=== PATIENT | male | born 1935 | race American Indian/Alaskan Native ===

== ENCOUNTER 2017-02-13 13:56 | Inpatient (IN) | payer MEDICARE, OTHER ==
[2017-02-13 13:56] VITALS: BMI 22.6
[2017-02-13] MEDS ORDERED: Sodium Chloride 0.9% 500 ML IV ONE ×2 (14:36→15:42)
[2017-02-13 15:17] LABS: BASO # 0.1 K/uL (0.0-0.2); BASO % 0.6 % (0.0-2.0); EOS # 0.6 K/uL (0.0-0.7); EOS % 7.5 % (0.0-4.0); HEMATOCRIT 27.8 % (35.0-51.0); LYMPH # 3.6 K/uL (1.0-4.3); LYMPH % 42.6 % (20.0-40.0); MEAN CORPUSCULAR HEMOGLOBIN 30.2 pg (27.0-31.0); MEAN CORPUSCULAR HGB CONC 32.9 g/dL (33.0-37.0); MEAN PLATELET VOLUME 8.4 fL (7.2-11.7); MONO # 1.4 K/uL (0.0-0.8); MONO % 16.3 % (0.0-10.0); RED CELL DISTRIBUTION WIDTH 15.5 % (11.5-14.5); WHITE BLOOD COUNT 8.4 K/uL (4.8-10.8)
[2017-02-13 15:18] LABS: MEAN CELL VOLUME 91.7 fL (80.0-94.0)
[2017-02-13 15:28] LABS: POTASSIUM 5.2 mmol/L (3.6-5.2)
[2017-02-13 15:30] LABS: BILIRUBIN,TOTAL 0.5 mg/dL (0.2-1.3)
[2017-02-13 15:31] LABS: ALB/GLOB RATIO 0.8 (1.0-2.1); TOTAL PROTEIN 8.9 g/dL (6.3-8.3)
[2017-02-13 15:32] LABS: CALCIUM 8.9 mg/dl (8.6-10.4)
--- NOTE | 2017-02-13 16:19 | C.PDOC ---
History Of Present Illness Pt was sent in by PMD Domenic Tatum for renal failure found on labs from yesterday. Pt has been feeling generalized weakness. Time Seen by Provider: 02/13/17 14:27 Chief Complaint (Nursing): Abnormal Labs History Per: Patient Onset/Duration Of Symptoms: Days (1) Current Symptoms Are (Timing): Still Present Severity: Moderate Reports Recently: Treated By A Physician Additional History Per: Prior Records Past Medical History Reviewed: Historical Data, Nursing Documentation, Vital Signs Vital Signs: Last Vital Signs Temp 98 F 02/13/17 14:04 Pulse 98 H 02/13/17 14:04 Resp 20 02/13/17 14:04 BP 146/88 02/13/17 14:04 Pulse Ox 100 02/13/17 14:04 - Medical History PMH: Arthritis (b/l tkr), HTN, Hypercholesterolemia, Peripheral Edema (no longer ), Pneumonia (mar 2016), Chronic Kidney Disease (renal insufficiency), Rheumatoid Arthritis - [facility] Procedures COLONOSCOPY (04/15/14) DRAINAGE OF LEFT KNEE JOINT, PERC ENDO APPROACH (03/05/15) EXCISION OF LEFT KNEE JOINT, PERC ENDO APPROACH, DIAGN (03/05/15) EXTRACTION OF L LOW LEG SUBCU/FASCIA, PERC APPROACH (03/05/15) INSERTION OF ENDOTRACHEAL AIRWAY INTO TRACHEA, VIA OPENING (03/05/15) INSERTION OF INFUSION DEV INTO SUP VENA CAVA, PERC APPROACH (03/05/15) INSPECTION OF LEFT KNEE JOINT, PERC ENDO APPROACH (03/05/15) RESPIRATORY VENTILATION, GREATER THAN 96 CONSECUTIVE HOURS (03/05/15) TRANSFUSE NONAUT RED BLOOD CELLS IN PERIPH VEIN, PERC (03/05/15) ULTRASONOGRAPHY OF SUPERIOR VENA CAVA, GUIDANCE (03/05/15) Family History: States: Unknown Family Hx - Social History Hx Tobacco Use: No Hx Alcohol Use: No Hx Substance Use: No - Immunization History Hx Tetanus Toxoid Vaccination: No Hx Influenza Vaccination: Yes (02/12/2017) Hx Pneumococcal Vaccination: (2013) Review Of Systems Except As Marked, All Systems Reviewed And Found Negative. Constitutional: Positive for: Weakness, Malaise. Negative for: Fever Cardiovascular: Negative for: Chest Pain Respiratory: Positive for: Shortness of Breath (on/off) Gastrointestinal: Negative for: Vomiting, Abdominal Pain, Diarrhea Genitourinary: Positive for: Dysuria, Frequency Musculoskeletal: Negative for: Neck Pain, Back Pain Skin: Negative for: Rash Neurological: Negative for: Weakness, Numbness Physical Exam - Physical Exam Appears: No Acute Distress, Chronically Ill Skin: Normal Color, Warm, Dry, No Rash Head: Atraumatic, Normacephalic Eye(s): bilateral: Normal Inspection, PERRL, EOMI Neck: Normal ROM, Supple Cardiovascular: Rhythm Regular Respiratory: Normal Breath Sounds, No Accessory Muscle Use Gastrointestinal/Abdominal: Soft, No Tenderness Back: No CVA Tenderness Extremity: Normal ROM Neurological/Psych: Oriented x3, Normal Motor, Normal Sensation ED Course And Treatment - Laboratory Results Result Diagrams: 02/13/17 15:11 02/13/17 15:11 Lab Interpretation: Abnormal Interpretation Of Abnormal: Renal failure ECG: Interpreted By Me, Viewed By Me ECG Rhythm: Sinus Rhythm, Nonspecific Changes Rate From EC O2 Sat by Pulse Oximetry: 100 Pulse Ox Interpretation: Normal - Radiology CXR: Interpreted by Me, Viewed By Me CXR Interpretation: Yes: Other (Mild congestive changes) Progress Note: I spoke to Dr. Fischer (covering Dr. Moreno), she wants pt to be admitted on hospitalist service and they with provide renal consult. Disposition Discussed With : Yobani العلي Comment: She accepted pt on hospitalist service. Doctor Will See Patient In The: Hospital Counseled Patient/Family Regarding: Studies Performed, Diagnosis - Disposition Disposition: HOSPITALIZED Disposition Time: 16:22 Condition: GUARDED - Clinical Impression Clinical Impression: Acute on chronic renal failure
--- NOTE | 2017-02-13 16:33 | RAD ---
PROCEDURE: CHEST RADIOGRAPH, 1 VIEW HISTORY: SOB COMPARISON: 03/21/2015 FINDINGS: LUNGS: The prior pulmonary venous congestion although still present appears slightly less Oval consolidation appreciated PLEURA: No pneumothorax seen. Small left pleural effusion possible CARDIOVASCULAR: Cardiomegaly as before OSSEOUS STRUCTURES: Thoracic spondylosis. Bilateral shoulder arthrosis. Deformity -proximal left humerus consistent with old fracture resultant deformity. VISUALIZED UPPER ABDOMEN: Normal. OTHER FINDINGS: None. IMPRESSION: Persistent is slightly less pronounced central pulmonary venous congestion. Cardiomegaly as before Arthrosis of both shoulders and similar old healed fracture deformity left proximal humerus
[2017-02-13 16:47] LABS: RBC URINE 53 /hpf (0-3); URINE BACTERIA RARE (<OCC); URINE BILIRUBIN NEGATIVE (NEGATIVE); URINE BLOOD 2+ (NEGATIVE); URINE COLOR Yellow (YELLOW); URINE GLUCOSE (UA) NORMAL (Normal); URINE KETONE NEGATIVE (NEGATIVE); URINE LEUKOCYTE ESTERASE 3+ Leu/uL (Negative); URINE PROTEIN 1+ mg/dL (NEGATIVE); URINE UROBILINOGEN NORMAL mg/dL (0.2-1.0); WBC URINE 950 /hpf (0-5)
--- NOTE | 2017-02-13 16:52 | CP.PCM.HP ---
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 Dr. Hinojosa (on consult) for TRACI on CKD. He has no acute complaints today other than it has been difficult to urinate for quite some time now, feel the urge to go, and very little comes out. He states he feels like he always has to go to the bathroom. He denies fevers/chills, MEDEIROS, CP, SOB, abdominal pain, N/V/D, dysuraia/ freq/urg, or lower extremity pain/swelling. Upon further questioning patient states that he has been losing weight unintentionally the last few months, has increased joint and "bone" pain, and that he has a much decreased appetite when compared to normal. Denies night sweats. PMhx: [place], HLD, OA, CKD stage 2, previous "stomach cancer Surgeries: B/l knee replacement Allergies: Seafood (shellfish), no medicatoins Meds: Aspirin 325, Finasteride, Crestor, Carvedilol Social: , independent ADL however memory is "starting to go" according to , walks without cane 4-5 blocks before getting short of breath, sleeps flat Present on Admission - Present on Admission Any Indicators Present on Admission: No History of DVT/PE: No History of Uncontrolled Diabetes: No Urinary Catheter: No Decubitus Ulcer Present: No Past Patient History - Past Medical History & Family History Past Medical History?: Yes - Past Social History Smoking Status: Former Smoker - CARDIAC Hx Hypercholesterolemia: Yes Hx Hypertension: Yes Hx Peripheral Edema: Yes (no longer) - PULMONARY Hx Pneumonia: Yes (mar 2016) - NEUROLOGICAL Hx Neurological Disorder: No - HEENT Hx HEENT Problems: No - RENAL Hx Chronic Kidney Disease: Yes (renal insufficiency) - HEMATOLOGICAL/ONCOLOGICAL Hx Blood Disorders: Yes (hx septic shock may 2015) Hx Blood Transfusions: Yes Hx Blood Transfusion Reaction: No Hx Hepatitis B: Yes (40 yrs ago) - MUSCULOSKELETAL/RHEUMATOLOGICAL Hx Arthritis: Yes (b/l tkr) Hx Rheumatoid Arthritis: Yes - GASTROINTESTINAL Hx Gastrointestinal Disorders: Yes Hx Gastroesophageal Reflux: Yes - GENITOURINARY/GYNECOLOGICAL Hx Genitourinary Disorders: Yes Hx Prostate Problems: Yes (BPH) - PSYCHIATRIC Hx Substance Use: No - SURGICAL HISTORY Hx Surgeries: Yes Hx Herniorrhaphy: Yes (ARSEN INGUINAL ) Hx Joint Replacement: Yes Hx Musculoskeletal Surgery: Yes (ARSEN ARTHROSCOPY BOTH KNEES) Other/Comment: liver bx - ANESTHESIA Hx Anesthesia: Yes Hx Anesthesia Reactions: No Hx Malignant Hyperthermia: No Meds Allergies/Adverse Reactions: Allergies Allergy/AdvReac Type Severity Reaction Status Date / Time FISH Allergy ITCHING Verified 02/13/17 14:08 seafoods Allergy ITCHING Uncoded 02/13/17 14:08 Physical Exam - Constitutional Appears: Non-toxic - Head Exam Head Exam: ATRAUMATIC - Eye Exam Eye Exam: EOMI Pupil Exam: PERRL Additional comments: cataracts present - ENT Exam ENT Exam: Mucous Membranes Moist - Respiratory Exam Respiratory Exam: Clear to Auscultation Bilateral, NORMAL BREATHING PATTERN. absent: Rales, Rhonchi, Wheezes - Cardiovascular Exam Cardiovascular Exam: REGULAR RHYTHM, +S1, +S2 - GI/Abdominal Exam GI & Abdominal Exam: Normal Bowel Sounds, Soft. absent: Tenderness - Rectal Exam Rectal Exam: Deferred - Extremities Exam Extremities exam: Positive for: full ROM, normal capillary refill, normal inspection, pedal pulses present. Negative for: calf tenderness, joint swelling , pedal edema, tenderness - Back Exam Back exam: absent: CVA tenderness (L), CVA tenderness (R) - Neurological Exam Neurological exam: Alert, CN II-XII Intact, Oriented x3 - Psychiatric Exam Psychiatric exam: Normal Affect - Skin Skin Exam: Warm Results - Vital Signs Recent Vital Signs: Last Vital Signs Temp 98 F 02/13/17 14:04 Pulse 98 H 02/13/17 14:04 Resp 20 02/13/17 14:04 BP 146/88 02/13/17 14:04 Pulse Ox 100 02/13/17 16:22 - Labs Result Diagrams: 02/13/17 15:11 02/13/17 15:11 Labs: Laboratory Results - last 24 hr 02/13/17 02/13/17 02/13/17 15:05 15:11 15:11 WBC 8.4 RBC 3.04 L Hgb 9.2 L Hct 27.8 L MCV 91.7 D MCH 30.2 MCHC 32.9 L RDW 15.5 H Plt Count 274 MPV 8.4 Neut % (Auto) 33.0 L Lymph % (Auto) 42.6 H [place] % (Auto) 16.3 H Eos % (Auto) 7.5 H Baso % (Auto) 0.6 Neut # 2.8 Lymph # 3.6 [place] # 1.4 H Eos # 0.6 Baso # 0.1 Sodium 139 Potassium 5.2 Chloride 107 Carbon Dioxide 16 L Anion Gap 21 H BUN 74 H Creatinine 5.7 H Est GFR ( Amer) 12 Est GFR (Non-Af Amer) 10 POC Glucose (mg/dL) 111 H Random Glucose 101 Calcium 8.9 Total Bilirubin 0.5 AST 26 ALT 16 L D Alkaline Phosphatase 116 Total Protein 8.9 H Albumin 3.9 Globulin 5.0 H Albumin/Globulin Ratio 0.8 L Urine Color Urine Clarity Urine pH Ur Specific [place] Urine Protein Urine Glucose (UA) Urine Ketones Urine Blood Urine Nitrate Urine Bilirubin Urine Urobilinogen Ur Leukocyte Esterase Urine WBC (Auto) Urine RBC (Auto) Urine Bacteria 02/13/17 16:37 WBC RBC Hgb Hct MCV MCH MCHC RDW Plt Count MPV Neut % (Auto) Lymph % (Auto) [place] % (Auto) Eos % (Auto) Baso % (Auto) Neut # Lymph # [place] # Eos # Baso # Sodium Potassium Chloride Carbon Dioxide Anion Gap BUN Creatinine Est GFR ( Amer) Est GFR (Non-Af Amer) POC Glucose (mg/dL) Random Glucose Calcium Total Bilirubin AST ALT Alkaline Phosphatase Total Protein Albumin Globulin Albumin/Globulin Ratio Urine Color Yellow Urine Clarity Hazy Urine pH 5.0 Ur Specific [place] 1.011 Urine Protein 1+ H Urine Glucose (UA) Normal Urine Ketones Negative Urine Blood 2+ H Urine Nitrate Negative Urine Bilirubin Negative Urine Urobilinogen Normal Ur Leukocyte Esterase 3+ H Urine WBC (Auto) 950 H Urine RBC (Auto) 53 H Urine Bacteria Rare Assessment & Plan - Assessment and Plan (Free Text) Assessment: 81yo AA M admitted for TRACI on CKD TRACI on CKD; 5.7 from 1.7 on record -Dr. Hinojosa; Nephrology; please appreciate recs -Dr. Forman; Urology; please appreciate recs -patient has history of BPH with slightly decreased GFR; patient states he has been having more trouble going to the bathroom recently -f/u urine lytes; ordered stat in ER for FeNa -100ml/hr NS until tomorrow for fluid hydration -f/u renal ultrasound for hydronephrosis -bladder scans; if patient is retaining will need to put in catheter w/ cudet as per urology HTN -c/w carvedilol -hold Lisinopril in TRACI -echo done 05/21 with MUGA; both normal w/ EF 65% with no wall motion abnormalities Anemia;Chronic -currently 9.2 -no signs of bleeding; appears to be around baseline -f/u anemia workup; iron/tibc/folate/b12/retic -consult Dr. Epps; appreciate recs Elevated Serum Protein -Pep and Immunofixation ordered; f/u results -patient does report bone pain/unintentional weight loss/decreased appetite the last few months Previous Liver Lesion of unknown etiology -CT abd/pelvis ordered for AM; previous CT recommended liver scans -liver enzymes WNL; alpha feta protein ordered for AM Proph -Pepcid PO -Lovenox 30 -Renal Heart Healthy Diet -Tylenol, Zofran, Hydralazine for HTN -full code Case discussed and seen with Dr. Greene Decision To Admit - Pt Status Changed To: Hospital Disposition Of: Inpatient - Admit Certification Admit to Inpatient:: After my assessment, the patient will require hospitalization for at least two midnights. This is because of the severity of symptoms shown, intensity of services needed, and/or the medical risk in this patient being treated as an outpatient. - InPatient: Physician Admission Certification:: this patient will need more than 2 midnights - . Bed Request Type: Regular Admitting Physician: Luz Maria Greene <Luz Maria Greene V - Last Filed: 02/15/17 10:46> Results - Vital Signs Recent Vital Signs: Last Vital Signs Temp 97.7 F 02/15/17 08:00 Pulse 105 H 02/15/17 08:00 Resp 20 02/15/17 08:00 BP 115/76 02/15/17 08:00 Pulse Ox 96 02/15/17 08:00 - Labs Result Diagrams: 02/15/17 07:03 02/15/17 07:03 Labs: Laboratory Results - last 24 hr 02/13/17 02/14/17 02/14/17 18:42 06:19 09:09 WBC RBC Hgb Hct MCV MCH MCHC RDW Plt Count MPV Neut % (Auto) Lymph % (Auto) [place] % (Auto) Eos % (Auto) Baso % (Auto) Neut # Lymph # [place] # Eos # Baso # Sodium Potassium Chloride Carbon Dioxide Anion Gap BUN Creatinine Est GFR ( Amer) Est GFR (Non-Af Amer) POC Glucose (mg/dL) Random Glucose Calcium Total Bilirubin AST ALT Alkaline Phosphatase Total Protein Total Protein (PEP) 7.9 Albumin Globulin Albumin/Globulin Ratio Ur Random Creatinine 46 U Random Total Protein 18365 H Urine Chloride 73 02/14/17 02/14/17 02/14/17 11:37 16:33 21:30 WBC RBC Hgb Hct MCV MCH MCHC RDW Plt Count MPV Neut % (Auto) Lymph % (Auto) [place] % (Auto) Eos % (Auto) Baso % (Auto) Neut # Lymph # [place] # Eos # Baso # Sodium Potassium Chloride Carbon Dioxide Anion Gap BUN Creatinine Est GFR ( Amer) Est GFR (Non-Af Amer) POC Glucose (mg/dL) 117 H 140 H 108 Random Glucose Calcium Total Bilirubin AST ALT Alkaline Phosphatase Total Protein Total Protein (PEP) Albumin Globulin Albumin/Globulin Ratio Ur Random Creatinine U Random Total Protein Urine Chloride 02/15/17 02/15/17 02/15/17 06:24 07:03 07:03 WBC 9.8 RBC 3.05 L Hgb 9.2 L Hct 27.7 L MCV 90.9 MCH 30.2 MCHC 33.2 RDW 15.4 H Plt Count 264 MPV 8.6 Neut % (Auto) 34.5 L Lymph % (Auto) 45.2 H [place] % (Auto) 12.8 H Eos % (Auto) 6.9 H Baso % (Auto) 0.6 Neut # 3.4 Lymph # 4.4 H [place] # 1.3 H Eos # 0.7 Baso # 0.1 Sodium 141 Potassium 4.4 Chloride 108 H Carbon Dioxide 19 L Anion Gap 18 BUN 56 H Creatinine 4.0 H Est GFR ( Amer) 18 Est GFR (Non-Af Amer) 14 POC Glucose (mg/dL) 114 H Random Glucose 93 Calcium 8.7 Total Bilirubin 0.2 AST 23 ALT 26 Alkaline Phosphatase 90 Total Protein 7.7 Total Protein (PEP) Albumin 3.1 L Globulin 4.5 H Albumin/Globulin Ratio 0.7 L Ur Random Creatinine U Random Total Protein Urine Chloride Attending/Attestation - Attestation I have personally seen and examined this patient.: Yes I have fully participated in the care of the patient.: Yes I have reviewed all pertinent clinical information: Yes Notes (Text): This is late computer entry for 02/13/17. Patient seen, examined, and case discussed with day-time resident. Patient sent in by PMD for abnormal lab values in light on acute on chronic renal failure. Patient has history of anemia and chronic, BPH on flomax/finasteride Admitting orders discussed with day-time resident. Assessment/Plan 1) Acute on Chronic Renal Failure * Dr. Hinojosa; Nephrology-->f/u recommendations * Dr. Forman; Urology-->was called by the resident on admssion, and called by the night-time resident given the result of Renal US * May 2015: 1.8--->On admission: 5.7 * Order for renal ultrasound for hydronephrosis * Renal US (02/13/17): echogenic renal parenchyma may be seen in setting of medical renal disease * Mild hydronpehrosis bilaterally. Evidence of right sided hydroureter. Right renal cyst measuring 4.1 cm on the right. * Postvoid urinary bladder measures approximately 390.8ml * Falk placed following result of renal US * Patient has history of BPH with slightly decreased GFR; patient states he has been having more trouble going to the bathroom recently * Urology consult * PSA ordered on admission * C/w home medications:Flomax 0.8mg PO daily and Proscar 5mg PO daily * Ordered for immunofixation, SPEP, UPEP * Abnormal UA on admission, urine culture collected in the ED * Patient started on Rocephin 1 gram IV q daily (active since 02/13/17) * Patient start NS 100cc/hr * Held Lisinopril in light of acute kidney injury 2) History of Hypertension * c/w carvedilol 3.125mg PO Q 12H * hold Lisinopril in TRACI * echo done 05/21 with MUGA; both normal w/ EF 65% with no wall motion abnormalities 3) Anemia;Chronic * hematology/oncology (Dr. Willa Epps) on consult * Patient was seen by Dr. Willa Epps in the past for anemia * currently 9.2 * no signs of bleeding; appears to be around baseline per review of EMR * f/u anemia workup-->reticulocyte count/iron/tibc/folate/b12/retic 4) Elevated Serum Protein * Pep and Immunofixation ordered; f/u results * patient does report bone pain/unintentional weight loss/decreased appetite the last few months in light on acute on chronic kidney renal insufficiency; possible multiple myeloma given anemia, bone patient 5) Previous Liver Lesion of unknown etiology * CT abd/pelvis ordered for AM; previous CT recommended liver scans * liver enzymes WNL; alpha feta protein ordered for AM 6) Lipid disorder * Crestor 5mg PO qHS 7) Prophylactic * Pepcid 20mg PO daily * Lovenox 30mg subqdaily * Tylenol 650mg PO Q6 PRN >100.4F * Renal Heart Healthy Diet * Full code
[2017-02-13] MEDS ORDERED: cefTRIAXone IV 1 gm in Dextros 50 ML IVPB ONE ×2 (16:55→18:45)
--- NOTE | 2017-02-13 18:10 | US ---
PROCEDURE: Ultrasound of the Kidneys HISTORY: TRACI on CKD COMPARISON: None available. TECHNIQUE: Sonogram of the kidneys. FINDINGS: RIGHT KIDNEY: Measures: 11.0 x 6.3 x 5.6 cm. Echogenic renal parenchyma. Mild hydronephrosis. Numerous renal cysts. For example: 1.9 x 2.1 x 2.8 cm upper pole ; 3.1 x 3.0 x 3.8 cm mid to upper pole; 4.1 x 3.1 x 3.0 cm lower pole renal cyst. Evidence of hydroureter. LEFT KIDNEY: Measures: 10.7 x 5.9 x 6.5 cm. Echogenic renal parenchyma. Mild hydronephrosis. OTHER FINDINGS: Postvoid urinary bladder measures approximately 390.8 mL. IMPRESSION: Echogenic renal parenchyma may be seen in setting of medical renal disease. Mild hydronephrosis bilaterally. Evidence of right-sided hydroureter. Right renal cysts measuring up to 4.1 cm on the right. Postvoid urinary bladder measures approximately 390.8 mL.
[2017-02-13] MEDS ORDERED: Sodium Chloride 0.9% 1,000 ML ONE (18:46)
[2017-02-13] MEDS: Sodium Chloride 0.9% 1,000 ML IV SCH (18:54)
[2017-02-13 18:55] LABS: CREATININE, RANDOM URINE 88.7 mg/dL
[2017-02-14] MEDS: Sodium Chloride 0.9% 1,000 ML IV SCH ×3 (05:23→14:00)
[2017-02-14 06:33] LABS: BASO # 0.1 K/uL (0.0-0.2); BASO % 1.1 % (0.0-2.0); EOS # 0.7 K/uL (0.0-0.7); EOS % 7.2 % (0.0-4.0); HEMATOCRIT 29.8 % (35.0-51.0); LYMPH % 41.6 % (20.0-40.0); MEAN CELL VOLUME 90.7 fL (80.0-94.0); MEAN CORPUSCULAR HEMOGLOBIN 29.8 pg (27.0-31.0); MEAN CORPUSCULAR HGB CONC 32.9 g/dL (33.0-37.0); MONO # 1.1 K/uL (0.0-0.8); NRBC % 0.1 % (0.0-2.0); RED CELL DISTRIBUTION WIDTH 15.8 % (11.5-14.5); RETIC% 1.4 % (0.5-1.5); WHITE BLOOD COUNT 9.5 K/uL (4.8-10.8)
--- NOTE | 2017-02-14 07:43 | CP.PCM.PN ---
<Kate Aburto - Last Filed: 02/14/17 14:09> Subjective - Date & Time of Evaluation Date of Evaluation: 02/14/17 Time of Evaluation: 07:43 - Subjective Subjective: Medicine Progress Note for Dr. Greene Patient was seen and examined at bedside in no acute distress. Patient reports having pain ever since the trevino catheter was inserted. Patient reports feeling well otherwise. Patient currently denies having chest pain,shortness of breath, abdominal pain, nausea, vomiting, fevers, and headaches. Objective - Vital Signs/Intake and Output Vital Signs (last 24 hours): Temp Pulse Resp BP Pulse Ox 97.5 F L 80 20 129/76 98 02/13/17 23:15 02/14/17 02:37 02/13/17 23:15 02/13/17 23:15 02/13/17 23:15 Intake and Output: 02/14/17 02/14/17 06:59 18:59 Intake Total 750 Output Total 2100 Balance -1350 - Medications Medications: Current Medications Acetaminophen (Tylenol 325mg Tab) 650 mg PO Q6 PRN PRN Reason: Fever >100.4 F Carvedilol (Coreg) 3.125 mg PO BID [facility] Last Admin: 02/13/17 18:55 Dose: 3.125 mg Enoxaparin Sodium (Lovenox) 30 mg SC DAILY [facility] Famotidine (Pepcid) 20 mg PO DAILY [facility] Last Admin: 02/13/17 18:55 Dose: 20 mg Finasteride (Proscar) 5 mg PO DAILY [facility] Hydralazine HCl (Apresoline) 10 mg IVP Q6H PRN PRN Reason: HTN Sodium Chloride (Sodium Chloride 0.9%) 1,000 mls @ 100 mls/hr IV .Q10H [facility] Stop: 02/14/17 14:00 Last Admin: 02/14/17 05:25 Dose: Not Given Ceftriaxone Sodium 1 gm/ (Sodium Chloride) 100 mls @ 100 mls/hr IVPB DAILY [facility] Ondansetron HCl (Zofran Inj) 4 mg IVP Q6 PRN PRN Reason: Nausea/Vomiting Rosuvastatin Calcium (Crestor) 5 mg PO HS [facility] Last Admin: 02/13/17 22:15 Dose: 5 mg Tamsulosin HCl (Flomax) 0.8 mg PO DAILY [facility] - Labs Labs: 02/14/17 06:19 02/13/17 15:11 - Constitutional Appears: No Acute Distress - Head Exam Head Exam: ATRAUMATIC, NORMAL INSPECTION - Eye Exam Eye Exam: EOMI - ENT Exam ENT Exam: Mucous Membranes Moist - Respiratory Exam Respiratory Exam: Clear to Ausculation Bilateral, NORMAL BREATHING PATTERN. absent: Rales, Rhonchi, Wheezes, Respiratory Distress - Cardiovascular Exam Cardiovascular Exam: REGULAR RHYTHM, +S1, +S2 - GI/Abdominal Exam GI & Abdominal Exam: Soft, Normal Bowel Sounds. absent: Distended, Firm, Tenderness - Exam Additional comments: s/p trevino catheter insertion: No discharge, blood, erythema or trauma visible. - Neurological Exam Neurological Exam: Alert, Awake, Oriented x3 - Psychiatric Exam Psychiatric exam: Normal Affect, Normal Mood - Skin Skin Exam: Dry, Intact, Normal Color, Warm Assessment and Plan - Assessment and Plan (Free Text) Assessment: Assessment: 81yo AA M admitted for TRACI on CKD TRACI on CKD; 5.7 from 1.7 on record - Dr. Hinojosa; Nephrology; appreciate recs - Dr. Forman; Urology; appreciate recs - Patient has history of BPH with slightly decreased GFR; patient states he has been having more trouble going to the bathroom recently - PSA: 0.348 - Urine lytes: urine creatinine 88.7, urine sodium 76 - Discontinued 100ml/hr NS 02/14/17 - Renal ultrasound: mild hydronephrosis bilaterally; right hydroureter; right renal cyst 4.1cm; post-void urinary bladder approximately 390.8ml - As per urology, keep trevino in. - Hematuria--> likely secondary to trevino insertion. HOLD Lovenox (02/14/17) - As per nephrology, started 1/2 NS + 75mEq Sodium Bicarb at 75mls/hr to correct acidosis (02/14/17) UTI - 3+ Leukocyte esterase, 1+ protein, 2+ blood; Numerous WBC on UA - Continue Ceftriaxone daily. HTN - c/w carvedilol - Hold Lisinopril in TRACI - Echo done 05/21 with MUGA; both normal w/ EF 65% with no wall motion abnormalities Anemia;Chronic - Currently 9.8 - No signs of bleeding; appears to be around baseline - Anemia workup; Iron, TIBC, %Sat low; Ferritin within normal limits; Vit B12 > 1000, Folate within normal limits. - Consult Dr. Epps; appreciate recs Elevated Serum Protein - Pep and Immunofixation ordered; f/u results - Patient does report bone pain/unintentional weight loss/decreased appetite the last few months Previous Liver Lesion of unknown etiology - CT abd/pelvis ordered for AM; previous CT recommended liver scans - Liver enzymes WNL - Alpha feta protein within normal limits Proph - Pepcid PO - Lovenox 30- HOLD due to hematuria - Renal Heart Healthy Diet - Tylenol, Zofran, Hydralazine for HTN - Full code <Luz Maria Greene V - Last Filed: 02/15/17 11:05> Objective - Vital Signs/Intake and Output Vital Signs (last 24 hours): Temp Pulse Resp BP Pulse Ox 97.7 F 105 H 20 115/76 96 02/15/17 08:00 02/15/17 08:00 02/15/17 08:00 02/15/17 08:00 02/15/17 08:00 Intake and Output: 02/15/17 02/15/17 06:59 18:59 Intake Total 1630 Output Total 1600 Balance 30 - Medications Medications: Current Medications Acetaminophen (Tylenol 325mg Tab) 650 mg PO Q6 PRN PRN Reason: Fever >100.4 F Carvedilol (Coreg) 3.125 mg PO Q12 [facility] Last Admin: 02/15/17 10:32 Dose: Not Given Enoxaparin Sodium (Lovenox) 30 mg SC DAILY [facility] Last Admin: 02/14/17 11:00 Dose: Not Given Famotidine (Pepcid) 20 mg PO DAILY [facility] Last Admin: 02/15/17 09:35 Dose: 20 mg Finasteride (Proscar) 5 mg PO DAILY [facility] Last Admin: 02/15/17 09:35 Dose: 5 mg Hydralazine HCl (Apresoline) 10 mg IVP Q6H PRN PRN Reason: HTN Ceftriaxone Sodium 1 gm/ (Sodium Chloride) 100 mls @ 100 mls/hr IVPB DAILY [facility] Last Admin: 02/15/17 09:34 Dose: 100 mls/hr Sodium Bicarbonate 75 meq/ (Sodium Chloride) 1,075 mls @ 75 mls/hr IV .[id number] [facility] Last Admin: 02/15/17 05:24 Dose: 75 mls/hr Ondansetron HCl (Zofran Inj) 4 mg IVP Q6 PRN PRN Reason: Nausea/Vomiting Rosuvastatin Calcium (Crestor) 5 mg PO HS [facility] Last Admin: 02/14/17 21:21 Dose: 5 mg Tamsulosin HCl (Flomax) 0.8 mg PO DAILY [facility] Last Admin: 02/15/17 09:35 Dose: 0.8 mg - Labs Labs: 02/15/17 07:03 02/15/17 07:03 Attending/Attestation - Attestation I have personally seen and examined this patient.: Yes I have fully participated in the care of the patient.: Yes I have reviewed all pertinent clinical information, including history, physical exam and plan: Yes Notes (Text): This is late computer entry for 02/14/17. Patient seen, examined and case discussed with day-time resident. Patient received a trevino overnight. Patient complaining about pain at the site of the trevino. Patient has mild hematuria, likely to traumatic insertion of the trevino. Discussed with urology, continue with the trevino, monitor BUN/Cr, and treat urinary tract infection. Pending urine culture. patient is on Rocephin IV. Nephrology on case-->f/u recommendations. Patient is monitored intake and output, check bladder scan. Assessment/Plan 1) Acute on Chronic Renal Failure Urinary Tract Infection Enlarged Prostate * Dr. Hinojosa; Nephrology-->f/u recommendations * Dr. Forman; Urology-->was called by the resident on admssion, and called by the night-time resident given the result of Renal US * May 2015: 1.8--->On admission: 5.7 * Improving * Order for renal ultrasound for hydronephrosis * Renal US (02/13/17): echogenic renal parenchyma may be seen in setting of medical renal disease * Mild hydronpehrosis bilaterally. Evidence of right sided hydroureter. Right renal cyst measuring 4.1 cm on the right. * Postvoid urinary bladder measures approximately 390.8ml * Trevino placed following result of renal US * Patient has history of BPH with slightly decreased GFR; patient states he has been having more trouble going to the bathroom recently * Urology consult * PSA ordered on admission * C/w home medications:Flomax 0.8mg PO daily and Proscar 5mg PO daily * Ordered for immunofixation, SPEP, UPEP * pending * Abnormal UA on admission, urine culture collected in the ED * UA: +protein, 2+ blood, 3+ esterase, 950 WBC, 53 RBC, rare bacteria * Urine culture pending * Patient started on Rocephin 1 gram IV q daily (active since 02/13/17) * Patient start NS 100cc/hr * Held Lisinopril on admission in light of acute kidney injury 2) History of Hypertension * c/w carvedilol 3.125mg PO Q 12H * hold Lisinopril in TRACI * echo done 05/21 with MUGA; both normal w/ EF 65% with no wall motion abnormalities 3) Anemia;Chronic * hematology/oncology (Dr. Willa Epps) on consult * Patient was seen by Dr. Willa Epps in the past for anemia * currently 9.2 * no signs of bleeding; appears to be around baseline per review of EMR * Traumatic insertion of Trevino suspected; lovenox held * f/u anemia workup * iron: 36 * %iron: 19 * TIBC: 196 * Reticulocyte: 1.4 * Ferritin: 191 * B12: >1000 * Folate >20.0 4) Elevated Serum Protein * Pep and Immunofixation ordered; f/u results * patient does report bone pain/unintentional weight loss/decreased appetite the last few months in light on acute on chronic kidney renal insufficiency; possible multiple myeloma given anemia, bone patient 5) Previous Liver Lesion of unknown etiology * CT abd/pelvis ordered for AM; previous CT recommended liver scans * liver enzymes WNL; alpha feta protein ordered for AM 6) Lipid disorder * Crestor 5mg PO qHS 7) Prophylactic * Pepcid 20mg PO daily * Lovenox 30mg subqdaily * Tylenol 650mg PO Q6 PRN >100.4F * Renal Heart Healthy Diet * Full code
[2017-02-14 08:05] LABS: CHLORIDE 110 mmol/L (98-107); SODIUM 139 mmol/L (132-148)
[2017-02-14 08:06] LABS: POTASSIUM 4.6 mmol/L (3.6-5.2)
[2017-02-14 08:07] LABS: GFR AFRICAN-AMERICAN 14
[2017-02-14 08:08] LABS: ALB/GLOB RATIO 0.8 (1.0-2.1); ALKALINE PHOSPHATASE 119 U/L (38-126); ALT/SGPT 20 U/L (21-72); AST/SGOT 33 U/L (17-59); BILIRUBIN,TOTAL 0.4 mg/dL (0.2-1.3); BLOOD UREA NITROGEN 69 mg/dL (9-20); CALCIUM 8.7 mg/dl (8.6-10.4); CARBON DIOXIDE 14 mmol/L (22-30); GLUCOSE,RANDOM 86 mg/dL (75-110); TOTAL PROTEIN 8.6 g/dL (6.3-8.3)
[2017-02-14 08:27] LABS: PROSTATE SPECIFIC ANTIGEN 0.348 ng/mL (0.00-4.0)
[2017-02-14 09:01] LABS: FOLATE > 20.0 ng/mL
--- NOTE | 2017-02-14 09:32 | CT ---
PROCEDURE: CT Abdomen and Pelvis without intravenous contrast HISTORY: liver lesion, renal failure COMPARISON: Unenhanced and pelvis CT 03/09/2015. TECHNIQUE: Helical CT of the abdomen and pelvis was performed without oral or intravenous contrast as per referring physician request . Contrast Dose: None Radiation dose: Total exam DLP = 802.88 mGy-cm. This CT exam was performed using one or more of the following dose reduction techniques: Automated exposure control, adjustment of the mA and/or kV according to patient size, and/or use of iterative reconstruction technique. FINDINGS: LOWER THORAX: Stable cardiomegaly. Resolution of prior bilateral pleural effusions. Small hiatal hernia again evident. LIVER: The prior lesion in the left lobe liver is not identified on this unenhanced CT examination. In fact, left lobe appears smaller in the interval and is homogeneous in its unenhanced density. GALLBLADDER AND BILE DUCTS: Unremarkable. PANCREAS: The pancreas remains markedly atrophic but nonfocal. SPLEEN: Unremarkable. ADRENALS: Unremarkable. No mass. KIDNEYS AND URETERS: Multiple right renal cysts are again appreciate with a dominant cyst increased in size measuring 4.3 x 3.2 cm compared to 4.0 cm greatest dimension previously. Mild right hydronephrosis and prominent Hydrea right hydroureter is now identified without radiodense urolithiasis appreciated. Urinary bladder appears thick-walled with gas in the lumen and a Falk catheter inserted decompressing the bladder. Prominent pericystic reaction suggests cystitis which may be inflammatory right ureterovesical junction resulting in right hydronephrosis. There is borderline left hydroureteronephrosis. Right greater than left trace perinephric reaction is identified. VASCULATURE: Unremarkable. No aortic aneurysm. BOWEL: Nonacute left colonic diverticular changes are again appreciated concentrated at the sigmoid segment. No obstruction. No gross mural thickening. APPENDIX: Unremarkable. Normal appendix. PERITONEUM: Unremarkable. No free fluid. No free air. LYMPH NODES: Unremarkable. No enlarged lymph nodesGross common and external iliac lymphadenopathy is appreciated increased in the interval, tension on the basis of cystitis though neoplasm is not excluded. Inferior right external iliac lymph node measures 5.9 x 3.0 cm with a 4.8 x 2.6 cm left external iliac lymph node present. Similar slightly smaller enlarged lymph nodes are identified more superiorly in the external iliac chains bilaterally. [id number] bilateral inguinal lymphadenopathy. BLADDER: Please see kidneys and ureter section for greater detail. REPRODUCTIVE: Unremarkable. BONES: No acute fracture. OTHER FINDINGS: None. IMPRESSION: 1. Prominent urinary bladder thickening with pericystic reaction and potential and mural emphysematous changes though the gas appears to be predominately intraluminal, in a pattern suggestive of cystitis. Borderline left-sided obstructive uropathy and mild right-sided obstructive uropathy is appreciated without radiodense urolithiasis. Consider distal bilateral ureteral strictures on inflammatory basis sympathetic to cystitis, or lucent calculus with other etiologies possible though not favored. 2. Mildly increased right renal cysts. 3. Prior left lobe hepatic lesion is not identified currently with no definitive findings appreciated at the liver in this unenhanced exam. Consider follow-up ultrasound for confirmation. 4. Left colonic diverticulosis without diverticulitis.
[2017-02-14] MEDS: Enoxaparin 30 mg Syringe SC SCH (11:00)
--- NOTE | 2017-02-14 12:02 | CP.PCM.CON ---
History of Present Illness - History of Present Illness History of Present Illness: renal consult note 81yo M with HTN, HLD, OA, CKD stage 4, previous admission for sepsis 2/2 to PNA w/ acute respiratory failure is admitted from our office for abnormal labs. he reports diffiiculty urination and blood in urine ( per family). no sob. no fever or chills. no abdominal pain Review of Systems - Review of Systems All systems: reviewed and no additional remarkable complaints except Past Patient History - Past Medical History & Family History Past Medical History?: Yes - Past Social History Smoking Status: Never Smoked - CARDIAC Hx Cardiac Disorders: Yes Hx Hypercholesterolemia: Yes Hx Hypertension: Yes Hx Peripheral Edema: Yes (no longer) - PULMONARY Hx Respiratory Disorders: Yes Hx Pneumonia: Yes (mar 2016) - NEUROLOGICAL Hx Neurological Disorder: No - HEENT Hx HEENT Problems: No - RENAL Hx Chronic Kidney Disease: Yes (renal insufficiency) - ENDOCRINE/METABOLIC Hx Endocrine Disorders: No - HEMATOLOGICAL/ONCOLOGICAL Hx Blood Disorders: Yes (hx septic shock may 2015) Hx Blood Transfusions: Yes Hx Blood Transfusion Reaction: No Hx Hepatitis B: Yes (40 yrs ago) - INTEGUMENTARY Hx Dermatological Problems: No - MUSCULOSKELETAL/RHEUMATOLOGICAL Hx Musculoskeletal Disorders: Yes Hx Arthritis: Yes (b/l tkr) Hx Falls: No Hx Rheumatoid Arthritis: Yes - GASTROINTESTINAL Hx Gastrointestinal Disorders: Yes Hx Gastroesophageal Reflux: Yes - GENITOURINARY/GYNECOLOGICAL Hx Genitourinary Disorders: Yes Hx Prostate Problems: Yes (BPH) - PSYCHIATRIC Hx Psychophysiologic Disorder: No Hx Substance Use: No - SURGICAL HISTORY Hx Surgeries: Yes Hx Herniorrhaphy: Yes (ARSEN INGUINAL ) Hx Joint Replacement: Yes Hx Musculoskeletal Surgery: Yes (ARSEN ARTHROSCOPY BOTH KNEES) Other/Comment: liver bx - ANESTHESIA Hx Anesthesia: Yes Hx Anesthesia Reactions: No Hx Malignant Hyperthermia: No Has any member of the family had a problem w/ anesthesia?: No Meds Allergies/Adverse Reactions: Allergies Allergy/AdvReac Type Severity Reaction Status Date / Time FISH Allergy ITCHING Verified 02/13/17 14:08 seafoods Allergy ITCHING Uncoded 02/13/17 14:08 - Medications Medications: Current Medications Acetaminophen (Tylenol 325mg Tab) 650 mg PO Q6 PRN PRN Reason: Fever >100.4 F Carvedilol (Coreg) 3.125 mg PO BID [facility] Last Admin: 02/14/17 10:24 Dose: 3.125 mg Enoxaparin Sodium (Lovenox) 30 mg SC DAILY [facility] Last Admin: 02/14/17 11:00 Dose: Not Given Famotidine (Pepcid) 20 mg PO DAILY [facility] Last Admin: 02/14/17 10:24 Dose: 20 mg Finasteride (Proscar) 5 mg PO DAILY [facility] Last Admin: 02/14/17 10:24 Dose: 5 mg Hydralazine HCl (Apresoline) 10 mg IVP Q6H PRN PRN Reason: HTN Sodium Chloride (Sodium Chloride 0.9%) 1,000 mls @ 100 mls/hr IV .Q10H [facility] Stop: 02/14/17 14:00 Last Admin: 02/14/17 05:25 Dose: Not Given Ceftriaxone Sodium 1 gm/ (Sodium Chloride) 100 mls @ 100 mls/hr IVPB DAILY [facility] Last Admin: 02/14/17 10:24 Dose: 100 mls/hr Ondansetron HCl (Zofran Inj) 4 mg IVP Q6 PRN PRN Reason: Nausea/Vomiting Rosuvastatin Calcium (Crestor) 5 mg PO HS [facility] Last Admin: 02/13/17 22:15 Dose: 5 mg Tamsulosin HCl (Flomax) 0.8 mg PO DAILY [facility] Last Admin: 02/14/17 10:24 Dose: 0.8 mg Physical Exam - Constitutional Appears: Non-toxic, No Acute Distress - Head Exam Head Exam: NORMAL INSPECTION - Eye Exam Eye Exam: Normal appearance - ENT Exam ENT Exam: Mucous Membranes Moist - Neck Exam Neck exam: Positive for: Normal Inspection - Respiratory Exam Respiratory Exam: NORMAL BREATHING PATTERN - Cardiovascular Exam Cardiovascular Exam: +S1, +S2 - GI/Abdominal Exam GI & Abdominal Exam: Soft - Extremities Exam Extremities exam: Positive for: normal inspection - Neurological Exam Neurological exam: Alert, Oriented x3 - Skin Skin Exam: Dry, Intact Results - Vital Signs Recent Vital Signs: Last Vital Signs Temp 98 F 02/14/17 10:22 Pulse 93 H 02/14/17 10:22 Resp 20 02/14/17 10:22 BP 128/76 02/14/17 10:22 Pulse Ox 98 02/14/17 10:22 - Labs Result Diagrams: 02/15/17 07:03 02/15/17 07:03 Labs: Laboratory Results - last 24 hr 02/13/17 02/13/17 02/13/17 15:05 15:11 15:11 WBC 8.4 RBC 3.04 L Hgb 9.2 L Hct 27.8 L MCV 91.7 D MCH 30.2 MCHC 32.9 L RDW 15.5 H Plt Count 274 MPV 8.4 Neut % (Auto) 33.0 L Lymph % (Auto) 42.6 H Leon % (Auto) 16.3 H Eos % (Auto) 7.5 H Baso % (Auto) 0.6 Neut # 2.8 Lymph # 3.6 Leon # 1.4 H Eos # 0.6 Baso # 0.1 Retic Count Sodium 139 Potassium 5.2 Chloride 107 Carbon Dioxide 16 L Anion Gap 21 H BUN 74 H Creatinine 5.7 H Est GFR ( Amer) 12 Est GFR (Non-Af Amer) 10 POC Glucose (mg/dL) 111 H Random Glucose 101 Hemoglobin A1c Calcium 8.9 Iron TIBC % Saturation Ferritin Total Bilirubin 0.5 AST 26 ALT 16 L D Alkaline Phosphatase 116 Total Protein 8.9 H Albumin 3.9 Globulin 5.0 H Albumin/Globulin Ratio 0.8 L Alpha Fetoprotein Prostate Specific Ag Vitamin B12 Folate Urine Color Urine Clarity Urine pH Ur Specific [place] Urine Protein Urine Glucose (UA) Urine Ketones Urine Blood Urine Nitrate Urine Bilirubin Urine Urobilinogen Ur Leukocyte Esterase Urine WBC (Auto) Urine RBC (Auto) Urine Bacteria Ur Random Creatinine Ur Random Sodium 02/13/17 02/13/17 02/13/17 16:37 18:42 21:00 WBC RBC Hgb Hct MCV MCH MCHC RDW Plt Count MPV Neut % (Auto) Lymph % (Auto) Leon % (Auto) Eos % (Auto) Baso % (Auto) Neut # Lymph # Leon # Eos # Baso # Retic Count Sodium Potassium Chloride Carbon Dioxide Anion Gap BUN Creatinine Est GFR ( Amer) Est GFR (Non-Af Amer) POC Glucose (mg/dL) 126 H Random Glucose Hemoglobin A1c Calcium Iron TIBC % Saturation Ferritin Total Bilirubin AST ALT Alkaline Phosphatase Total Protein Albumin Globulin Albumin/Globulin Ratio Alpha Fetoprotein Prostate Specific Ag Vitamin B12 Folate Urine Color Yellow Urine Clarity Hazy Urine pH 5.0 Ur Specific [place] 1.011 Urine Protein 1+ H Urine Glucose (UA) Normal Urine Ketones Negative Urine Blood 2+ H Urine Nitrate Negative Urine Bilirubin Negative Urine Urobilinogen Normal Ur Leukocyte Esterase 3+ H Urine WBC (Auto) 950 H Urine RBC (Auto) 53 H Urine Bacteria Rare Ur Random Creatinine 88.7 Ur Random Sodium 76 02/14/17 02/14/17 02/14/17 06:19 06:19 06:19 WBC 9.5 RBC 3.29 L Hgb 9.8 L Hct 29.8 L MCV 90.7 MCH 29.8 MCHC 32.9 L RDW 15.8 H Plt Count 296 MPV 9.0 Neut % (Auto) 38.1 L Lymph % (Auto) 41.6 H Leon % (Auto) 12.0 H Eos % (Auto) 7.2 H Baso % (Auto) 1.1 Neut # 3.6 Lymph # 4.0 Leon # 1.1 H Eos # 0.7 Baso # 0.1 Retic Count 1.4 D Sodium 139 Potassium 4.6 Chloride 110 H Carbon Dioxide 14 L Anion Gap 20 BUN 69 H Creatinine 4.9 H Est GFR ( Amer) 14 Est GFR (Non-Af Amer) 11 POC Glucose (mg/dL) Random Glucose 86 Hemoglobin A1c 6.7 H Calcium 8.7 Iron TIBC % Saturation Ferritin 191.0 Total Bilirubin 0.4 AST 33 ALT 20 L D Alkaline Phosphatase 119 Total Protein 8.6 H Albumin 3.7 Globulin 4.9 H Albumin/Globulin Ratio 0.8 L Alpha Fetoprotein Prostate Specific Ag 0.348 Vitamin B12 > 1000 H Folate > 20.0 Urine Color Urine Clarity Urine pH Ur Specific [place] Urine Protein Urine Glucose (UA) Urine Ketones Urine Blood Urine Nitrate Urine Bilirubin Urine Urobilinogen Ur Leukocyte Esterase Urine WBC (Auto) Urine RBC (Auto) Urine Bacteria Ur Random Creatinine Ur Random Sodium 02/14/17 02/14/17 02/14/17 06:19 06:32 11:37 WBC RBC Hgb Hct MCV MCH MCHC RDW Plt Count MPV Neut % (Auto) Lymph % (Auto) Leon % (Auto) Eos % (Auto) Baso % (Auto) Neut # Lymph # Leon # Eos # Baso # Retic Count Sodium Potassium Chloride Carbon Dioxide Anion Gap BUN Creatinine Est GFR ( Amer) Est GFR (Non-Af Amer) POC Glucose (mg/dL) 98 117 H Random Glucose Hemoglobin A1c Calcium Iron 36 L TIBC 196 L % Saturation 19 L Ferritin Total Bilirubin AST ALT Alkaline Phosphatase Total Protein Albumin Globulin Albumin/Globulin Ratio Alpha Fetoprotein 2.0 Prostate Specific Ag Vitamin B12 Folate Urine Color Urine Clarity Urine pH Ur Specific [place] Urine Protein Urine Glucose (UA) Urine Ketones Urine Blood Urine Nitrate Urine Bilirubin Urine Urobilinogen Ur Leukocyte Esterase Urine WBC (Auto) Urine RBC (Auto) Urine Bacteria Ur Random Creatinine Ur Random Sodium Assessment & Plan - Assessment and Plan (Free Text) Plan: TRACI/CKD stage 4/HTN/acidosis/anemia/UTI/hydronephrosis/cystitis/abnormal protein levels cr is slowly improving, ddx: prerenal vs obstructive causes recommend switching fluid to bicarb gtt acidosis: should improve with fluids as above anemia: check iron panel uti: abx per primary team urology on board for abnormal ct scan results recommend sending spep upep work up for elevated protein levels chrystal housestabisi
--- NOTE | 2017-02-14 15:02 | CON ---
DATE: 02/14/2017 COMPREHENSIVE UROLOGY CONSULTATION TIME OF CONSULTATION: Roughly at 12:25 p.m. BRIEF HISTORY: The patient is an 81-year-old black male with a past medical history of hypertension, hyperlipidemia, ostearthritis and chronic kidney disease and BPH. The patient now presents to [facility] Emergency Room with history of difficulty voiding urine and was found to be an acute renal failure. Falk catheter was inserted in the Emergency Room. Renal ultrasound on 02/13/2017 showed bilateral mild hydronephrosis and hydroureter on the right side and a thick-walled bladder. CAT scan showed similar findings. No evidence of any ureteral calculi responsible for the hydronephrosis, but a thick-walled bladder with inflammatory changes consistent with possible cystitis. The patient says that he has had a history of prostate problems including BPH for more than 5 years and may have been on medications for BPH such as Flomax and finasteride in the past. He has no family history of any prostate cancer. He does have a history of stomach cancer. He has also been treated for sepsis previously at [facility] and also had pulmonary problems in the past. He denies any prior surgical history especially any urologic surgery. PHYSICAL EXAMINATION: VITAL SIGNS: Today his temperature is 98, his pulse rate is 93, his blood pressure 128/76 and his respirations are 20. His O2 sat on room air was 98%. GENERAL: Today the patient is well-developed, well-nourished, slightly obese black male and he is alert, oriented. HEENT: Grossly within normal limits. NECK: Supple. Thyroid not palpable. ABDOMEN: Soft, not distended or tender. No CVA tenderness. No suprapubic tenderness and Falk catheter is now draining carlos alberto urine well. GENITALIA: He is not circumcised. He has a normal glans and meatus without any rashes or lesions visualized. Testes are down bilaterally, nontender without any masses. RECTAL: Normal rectal tone without fluctuance or masses. Prostate is slightly enlarged smooth, symmetrical and nontender without nodules or indurations with an absent median sulcus. LABORATORY DATA: Laboratory evaluation today 02/18/2017 shows a CBC with a WBC count 9.5, hemoglobin of 9.8 and hematocrit of 29.8 indicating a moderate anemia. Platelet count was 296,000. His chem profile shows on admission 02/13/2017 BUN and creatinine of 74 and 5.7 and today with Falk catheterization down to 69 and 4.9 on 02/14/2017. Today his sodium is 139, potassium 4.6, chloride 110, CO2 of 14 and his GFR today is 14 which is up from his previous GFR on 02/13/2017 of 12. His random glucose today is 117. Hemoglobin A1c was 6.7, calcium 8.7, AST 33, ALT 20, alkaline phosphatase 119. PSA is 0.348. His urinalysis on 02/13/2017 shows a color was yellow; clarity was hazy; pH was 5.0; specific gravity 1.011; protein was 1+; glucose was normal; ketones negative; blood 2+, this is after Falk catheterization; nitrite and bilirubin was negative; urobilinogen normal. Leukocyte esterase was 3+ with 950 wbc's and 53 rbc's with rare bacteria per high-power field. DIAGNOSTIC IMPRESSION FOR THIS PATIENT: 1. Acute renal failure most likely secondary to outlet obstruction from benign prostatic hypertrophy. 2. Benign prostatic hypertrophy. 3. Possible urosepsis. 4. Possible cystitis. PLAN: Plan for this patient will be to treat the patient with IV antibiotics, pending urine culture and sensitivity. The patient is currently on Rocephin IV. He was also placed on tamsulosin 0.8 mg daily and is also on finasteride 5 mg daily. His residual bladder ultrasound showed about 400 mL in his bladder. Plan for this patient is to continue the patient on the above medications and after the urine returns back to normal will give the patient a voiding trial which may be in at least a week or 10 days. The patient may eventually need a cystoscopy. Milad Forman MD [facility]
[2017-02-15 03:30] LABS: TOTAL PROTEIN, SERUM 7.9 g/dL (6.1-8.1)
--- NOTE | 2017-02-15 06:58 | CP.PCM.PN ---
<Luz Maria Greene V - Last Filed: 02/15/17 11:05> Objective - Vital Signs/Intake and Output Vital Signs (last 24 hours): Temp Pulse Resp BP Pulse Ox 97.7 F 105 H 20 115/76 96 02/15/17 08:00 02/15/17 08:00 02/15/17 08:00 02/15/17 08:00 02/15/17 08:00 Intake and Output: 02/15/17 02/15/17 06:59 18:59 Intake Total 1630 Output Total 1600 Balance 30 - Medications Medications: Current Medications Acetaminophen (Tylenol 325mg Tab) 650 mg PO Q6 PRN PRN Reason: Fever >100.4 F Carvedilol (Coreg) 3.125 mg PO Q12 [facility] Last Admin: 02/15/17 10:32 Dose: Not Given Enoxaparin Sodium (Lovenox) 30 mg SC DAILY [facility] Last Admin: 02/14/17 11:00 Dose: Not Given Famotidine (Pepcid) 20 mg PO DAILY [facility] Last Admin: 02/15/17 09:35 Dose: 20 mg Finasteride (Proscar) 5 mg PO DAILY [facility] Last Admin: 02/15/17 09:35 Dose: 5 mg Hydralazine HCl (Apresoline) 10 mg IVP Q6H PRN PRN Reason: HTN Sodium Bicarbonate 75 meq/ (Sodium Chloride) 1,075 mls @ 75 mls/hr IV .[id number] [facility] Last Admin: 02/15/17 05:24 Dose: 75 mls/hr Ceftriaxone Sodium 1 gm/ (Sodium Chloride) 100 mls @ 100 mls/hr IVPB Q12H [facility] Morphine Sulfate (Morphine) 1 mg IV Q6 PRN PRN Reason: Pain, moderate (4-7) Ondansetron HCl (Zofran Inj) 4 mg IVP Q6 PRN PRN Reason: Nausea/Vomiting Rosuvastatin Calcium (Crestor) 5 mg PO HS [facility] Last Admin: 02/14/17 21:21 Dose: 5 mg Tamsulosin HCl (Flomax) 0.8 mg PO DAILY [facility] Last Admin: 02/15/17 09:35 Dose: 0.8 mg - Labs Labs: 02/15/17 07:03 02/15/17 07:03 Attending/Attestation - Attestation I have personally seen and examined this patient.: Yes I have fully participated in the care of the patient.: Yes I have reviewed all pertinent clinical information, including history, physical exam and plan: Yes Notes (Text): Patient seen, examined and case discussed with day-time resident. Patient received a trevino two days prior. Kidney function is improving. Patient is new diagnosed diabetes. Hgba1c: 6.7. Will monitor accuchecks Q ac and HS. Patient complaining about pain at the site of the trevino. instructed patient to use prn pain given mild tachycardia. PT/OT eval placed. Urine culture contaminated; repeat UA and urine culture Increase Rocephin 1 gram IV q12h Assessment/Plan 1) Acute on Chronic Renal Failure Urinary Tract Infection Enlarged Prostate * Dr. Hinojosa; Nephrology-->f/u recommendations * Dr. Forman; Urology-->was called by the resident on admission, and called by the night-time resident given the result of Renal US * May 2015: 1.8--->On admission: 5.7 * Improving * Order for renal ultrasound for hydronephrosis * Renal US (02/13/17): echogenic renal parenchyma may be seen in setting of medical renal disease * Mild hydronpehrosis bilaterally. Evidence of right sided hydroureter. Right renal cyst measuring 4.1 cm on the right. * Postvoid urinary bladder measures approximately 390.8ml * Trevino placed following result of renal US * Patient has history of BPH with slightly decreased GFR; patient states he has been having more trouble going to the bathroom recently * Urology consult * PSA ordered on admission * C/w home medications:Flomax 0.8mg PO daily and Proscar 5mg PO daily * Ordered for immunofixation, SPEP, UPEP * pending * Abnormal UA on admission, urine culture collected in the ED * UA: +protein, 2+ blood, 3+ esterase, 950 WBC, 53 RBC, rare bacteria * Urine culture pending * Patient started on Rocephin 1 gram IV q daily (active since 02/13/17) * Patient start NS 100cc/hr * Held Lisinopril on admission in light of acute kidney injury 2) History of Hypertension * c/w carvedilol 3.125mg PO Q 12H * hold Lisinopril in TRACI * echo done 05/21 with MUGA; both normal w/ EF 65% with no wall motion abnormalities 3) Diabetes * newly diagnosed * Hgba1c: 6.7 * museum educator 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 Willa Epps) on consult * Patient was seen by Dr. Willa Epps in the past for anemia * currently 9.2 * no signs of bleeding; appears to be around baseline per review of EMR * Traumatic insertion of Trevino suspected; lovenox held * f/u anemia workup * iron: 36 * %iron: 19 * TIBC: 196 * Reticulocyte: 1.4 * Ferritin: 191 * B12: >1000 * Folate >20.0 5) Elevated Serum Protein * Pep and Immunofixation ordered; f/u results * patient does report bone pain/unintentional weight loss/decreased appetite the last few months in light on acute on chronic kidney renal insufficiency; possible multiple myeloma given anemia, bone patient 6) Previous Liver Lesion of unknown etiology * CT abd/pelvis ordered for AM; previous CT recommended liver scans * liver enzymes WNL; alpha feta protein ordered for AM 7) Lipid disorder * Crestor 5mg PO qHS * Lipid panel in AM 8) Prophylactic * Pepcid 20mg PO daily * held Lovenox 30mg subqdaily secondary to hematuria * SCDS b/l * Tylenol 650mg PO Q6 PRN >100.4F * Renal Heart Healthy Diet * Full code <Wilfred Viera - Last Filed: 02/15/17 13:48> Subjective - Date & Time of Evaluation Date of Evaluation: 02/15/17 Time of Evaluation: 06:57 - Subjective Subjective: PGY-[address] Greene's Service: Pt seen and examined at bedside. Nursing reports urine trevino looking clearer today, with no marcus hematuria. Pt denies dysuria, blood/pain from trevino site. Pt denies fever, chills, abdominal pain, N/V. He reports eating well, and passing BM without issue Objective - Vital Signs/Intake and Output Vital Signs (last 24 hours): Temp Pulse Resp BP Pulse Ox 97.7 F 82 20 121/78 100 02/14/17 23:15 02/15/17 00:00 02/14/17 23:15 02/14/17 23:15 02/14/17 23:15 Intake and Output: 02/14/17 02/15/17 18:59 06:59 Intake Total 1100 1630 Output Total 600 1600 Balance 500 30 - Medications Medications: Current Medications Acetaminophen (Tylenol 325mg Tab) 650 mg PO Q6 PRN PRN Reason: Fever >100.4 F Carvedilol (Coreg) 3.125 mg PO BID [facility] Last Admin: 02/14/17 17:31 Dose: 3.125 mg Enoxaparin Sodium (Lovenox) 30 mg SC DAILY [facility] Last Admin: 02/14/17 11:00 Dose: Not Given Famotidine (Pepcid) 20 mg PO DAILY [facility] Last Admin: 02/14/17 10:24 Dose: 20 mg Finasteride (Proscar) 5 mg PO DAILY [facility] Last Admin: 02/14/17 10:24 Dose: 5 mg Hydralazine HCl (Apresoline) 10 mg IVP Q6H PRN PRN Reason: HTN Ceftriaxone Sodium 1 gm/ (Sodium Chloride) 100 mls @ 100 mls/hr IVPB DAILY [facility] Last Admin: 02/14/17 10:24 Dose: 100 mls/hr Sodium Bicarbonate 75 meq/ (Sodium Chloride) 1,075 mls @ 75 mls/hr IV .[id number] [facility] Last Admin: 02/15/17 05:24 Dose: 75 mls/hr Ondansetron HCl (Zofran Inj) 4 mg IVP Q6 PRN PRN Reason: Nausea/Vomiting Rosuvastatin Calcium (Crestor) 5 mg PO HS [facility] Last Admin: 02/14/17 21:21 Dose: 5 mg Tamsulosin HCl (Flomax) 0.8 mg PO DAILY [facility] Last Admin: 02/14/17 10:24 Dose: 0.8 mg - Labs Labs: 02/14/17 06:19 02/14/17 06:19 - Constitutional Appears: Non-toxic, No Acute Distress - Head Exam Head Exam: ATRAUMATIC, NORMOCEPHALIC - Eye Exam Eye Exam: EOMI, PERRL. absent: Scleral icterus - ENT Exam ENT Exam: Mucous Membranes Moist - Respiratory Exam Respiratory Exam: Clear to Ausculation Bilateral, NORMAL BREATHING PATTERN. absent: Rales, Rhonchi, Wheezes - Cardiovascular Exam Cardiovascular Exam: REGULAR RHYTHM, +S1, +S2 - GI/Abdominal Exam GI & Abdominal Exam: Soft, Normal Bowel Sounds. absent: Tenderness - Exam Additional comments: trevino catheter in place: trevino bag with clearer urine today, slight red tinge but not marcus hematuria - Extremities Exam Extremities Exam: Normal Inspection. absent: Pedal Edema - Back Exam Back Exam: absent: CVA tenderness (L), CVA tenderness (R) - Neurological Exam Neurological Exam: Alert, Awake, Oriented x3 - Psychiatric Exam Psychiatric exam: Normal Affect, Normal Mood - Skin Skin Exam: Dry, Normal Color, Warm Assessment and Plan - Assessment and Plan (Free Text) Plan: 1) Acute on Chronic Renal Failure Urinary Tract Infection Enlarged Prostate * Dr. Hinojosa; Nephrology-->f/u recommendations * Dr. Forman; Urology-->was called by the resident on admission, and called by the night-time resident given the result of Renal US * May 2015: 1.8--->On admission: 5.7 * Improving * Order for renal ultrasound for hydronephrosis * Renal US (02/13/17): echogenic renal parenchyma may be seen in setting of medical renal disease * Mild hydronpehrosis bilaterally. Evidence of right sided hydroureter. Right renal cyst measuring 4.1 cm on the right. * Postvoid urinary bladder measures approximately 390.8ml * Trevino placed following result of renal US * Patient has history of BPH with slightly decreased GFR; patient states he has been having more trouble going to the bathroom recently * Urology consult * PSA ordered on admission * C/w home medications:Flomax 0.8mg PO daily and Proscar 5mg PO daily * Ordered for immunofixation, SPEP, UPEP * pending * Abnormal UA on admission, urine culture collected in the ED * UA: +protein, 2+ blood, 3+ esterase, 950 WBC, 53 RBC, rare bacteria * Urine culture Contaminated, repeat * Will most likely need cystoscopy as outpatient * Patient started on Rocephin 1 gram IV q daily (active since 02/13/17) * Patient start NS 100cc/hr * Held Lisinopril on admission in light of acute kidney injury 2) History of Hypertension * c/w carvedilol 3.125mg PO Q 12H * hold Lisinopril in TRACI * echo done 05/21 with MUGA; both normal w/ EF 65% with no wall motion abnormalities 3) Diabetes * newly diagnosed * Hgba1c: 6.7 * museum educator 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 Willa Epps) on consult * Patient was seen by Dr. Willa Epps in the past for anemia * currently 9.2 * no signs of bleeding; appears to be around baseline per review of EMR * Traumatic insertion of Trevino suspected; lovenox held * f/u anemia workup * iron: 36 * %iron: 19 * TIBC: 196 * Reticulocyte: 1.4 * Ferritin: 191 * B12: >1000 * Folate >20.0 5) Elevated Serum Protein * Pep and Immunofixation ordered; f/u results * patient does report bone pain/unintentional weight loss/decreased appetite the last few months in light on acute on chronic kidney renal insufficiency; possible multiple myeloma given anemia, bone patient 6) Previous Liver Lesion of unknown etiology * CT abd/pelvis (02/14/17): Prior left hepatic lesion not identified currently with no definitive findings appreciated at the liver in unenhanced exam. * f/u US ABD * liver enzymes WNL * AFP: WNL 7) Lipid disorder * Crestor 5mg PO qHS * Lipid panel in AM 8) Prophylactic * Pepcid 20mg PO daily * held Lovenox 30mg subqdaily secondary to hematuria * SCDS b/l * Tylenol 650mg PO Q6 PRN >100.4F * Renal Heart Healthy Diet * Full code Wilfred Viera PGY-2
[2017-02-15 07:11] LABS: BASO # 0.1 K/uL (0.0-0.2); BASO % 0.6 % (0.0-2.0); EOS # 0.7 K/uL (0.0-0.7); EOS % 6.9 % (0.0-4.0); HEMATOCRIT 27.7 % (35.0-51.0); LYMPH # 4.4 K/uL (1.0-4.3); LYMPH % 45.2 % (20.0-40.0); MEAN CELL VOLUME 90.9 fL (80.0-94.0); MEAN CORPUSCULAR HEMOGLOBIN 30.2 pg (27.0-31.0); MEAN CORPUSCULAR HGB CONC 33.2 g/dL (33.0-37.0); MEAN PLATELET VOLUME 8.6 fL (7.2-11.7); MONO # 1.3 K/uL (0.0-0.8); MONO % 12.8 % (0.0-10.0); NRBC % 0.1 % (0.0-2.0); RED CELL DISTRIBUTION WIDTH 15.4 % (11.5-14.5); WHITE BLOOD COUNT 9.8 K/uL (4.8-10.8)
[2017-02-15 07:59] LABS: POTASSIUM 4.4 mmol/L (3.6-5.2)
[2017-02-15 08:01] LABS: BILIRUBIN,TOTAL 0.2 mg/dL (0.2-1.3)
[2017-02-15 08:02] LABS: ALB/GLOB RATIO 0.7 (1.0-2.1); CALCIUM 8.7 mg/dl (8.6-10.4); TOTAL PROTEIN 7.7 g/dL (6.3-8.3)
[2017-02-15 09:03] LABS: CREATININE, RANDOM URINE 46 mg/dL (20-370)
[2017-02-15 09:38] LABS: CHLORIDE URINE 73 mmol/L (32-290)
[2017-02-15 14:25] LABS: RBC URINE 75 /hpf (0-3); URINE BACTERIA RARE (<OCC); URINE BILIRUBIN NEGATIVE (NEGATIVE); URINE BLOOD 3+ (NEGATIVE); URINE COLOR Yellow (YELLOW); URINE GLUCOSE (UA) NORMAL (Normal); URINE KETONE NEGATIVE (NEGATIVE); URINE LEUKOCYTE ESTERASE 3+ Leu/uL (Negative); URINE PROTEIN 2+ mg/dL (NEGATIVE); URINE UROBILINOGEN NORMAL mg/dL (0.2-1.0); WBC CLUMPS FEW /hpf; WBC URINE 89 /hpf (0-5)
--- NOTE | 2017-02-15 23:01 | CP.PCM.CON ---
History of Present Illness - History of Present Illness History of Present Illness: 81 year old male with a history of HTN, HL, CKD, ?stomach cancer, admitted for worsening renal failure, found to be anemic with an elevated globulin gap. He does report to increasing difficulty passing his urine. This is associated with burning at the end of his urinary stream. He denies bone pain but does have joint pain which he attributes to arthritis. He denies abnormal bleeding and bruising. Past medical history: HTN, HL, CKD, ? stomach cancer. Past surgical history: B/L knee replacement Family history: Denies hematologic and oncologic problems Social history: Denies tobacco, alcohol, and illicit drug use. Allergies: FISH Review of systems: All remaining review of systems including HEENT, cardiovascular, respiratory, gastrointestinal, genitourinary, musculoskeletal, dermatologic, neurologic, and psychiatric are negative unless mentioned in the HPI. Past Patient History - Past Medical History & Family History Past Medical History?: Yes - Past Social History Smoking Status: Never Smoked - CARDIAC Hx Cardiac Disorders: Yes Hx Hypercholesterolemia: Yes Hx Hypertension: Yes - PULMONARY Hx Respiratory Disorders: Yes Hx Pneumonia: Yes (mar 2016) - NEUROLOGICAL Hx Neurological Disorder: No - HEENT Hx HEENT Problems: No - RENAL Hx Chronic Kidney Disease: Yes (renal insufficiency) - ENDOCRINE/METABOLIC Hx Endocrine Disorders: No - HEMATOLOGICAL/ONCOLOGICAL Hx Blood Disorders: Yes (hx septic shock may 2015) Hx Blood Transfusions: Yes Hx Blood Transfusion Reaction: No Hx Hepatitis B: Yes (40 yrs ago) - INTEGUMENTARY Hx Dermatological Problems: No - MUSCULOSKELETAL/RHEUMATOLOGICAL Hx Arthritis: Yes (b/l tkr) Hx Rheumatoid Arthritis: Yes - GASTROINTESTINAL Hx Gastrointestinal Disorders: Yes Hx Gastroesophageal Reflux: Yes - GENITOURINARY/GYNECOLOGICAL Hx Genitourinary Disorders: Yes Hx Prostate Problems: Yes (BPH) - PSYCHIATRIC Hx Psychophysiologic Disorder: No Hx Substance Use: No - SURGICAL HISTORY Hx Surgeries: Yes Hx Herniorrhaphy: Yes (ARSEN INGUINAL ) Hx Joint Replacement: Yes Hx Musculoskeletal Surgery: Yes (ARSEN ARTHROSCOPY BOTH KNEES) Other/Comment: liver bx - ANESTHESIA Hx Anesthesia: Yes Hx Anesthesia Reactions: No Hx Malignant Hyperthermia: No Has any member of the family had a problem w/ anesthesia?: No Meds Allergies/Adverse Reactions: Allergies Allergy/AdvReac Type Severity Reaction Status Date / Time FISH Allergy ITCHING Verified 02/13/17 14:08 seafoods Allergy ITCHING Uncoded 02/13/17 14:08 - Medications Medications: Current Medications Acetaminophen (Tylenol 325mg Tab) 650 mg PO Q6 PRN PRN Reason: Fever >100.4 F Carvedilol (Coreg) 3.125 mg PO Q12 [facility] Last Admin: 02/15/17 21:46 Dose: 3.125 mg Enoxaparin Sodium (Lovenox) 30 mg SC DAILY [facility] Last Admin: 02/14/17 11:00 Dose: Not Given Famotidine (Pepcid) 20 mg PO DAILY [facility] Last Admin: 02/15/17 09:35 Dose: 20 mg Finasteride (Proscar) 5 mg PO DAILY [facility] Last Admin: 02/15/17 09:35 Dose: 5 mg Hydralazine HCl (Apresoline) 10 mg IVP Q6H PRN PRN Reason: HTN Sodium Bicarbonate 75 meq/ (Sodium Chloride) 1,075 mls @ 75 mls/hr IV .[id number] [facility] Last Admin: 02/15/17 18:17 Dose: Not Given Ceftriaxone Sodium 1 gm/ (Sodium Chloride) 100 mls @ 100 mls/hr IVPB Q12H [facility] Last Admin: 02/15/17 22:02 Dose: 100 mls/hr Morphine Sulfate (Morphine) 1 mg IV Q6 PRN PRN Reason: Pain, moderate (4-7) Ondansetron HCl (Zofran Inj) 4 mg IVP Q6 PRN PRN Reason: Nausea/Vomiting Rosuvastatin Calcium (Crestor) 5 mg PO HS [facility] Last Admin: 02/15/17 21:46 Dose: 5 mg Tamsulosin HCl (Flomax) 0.8 mg PO DAILY [facility] Last Admin: 02/15/17 09:35 Dose: 0.8 mg Physical Exam - Head Exam Head Exam: ATRAUMATIC - Eye Exam Eye Exam: Normal appearance - ENT Exam ENT Exam: Mucous Membranes Dry - Respiratory Exam Respiratory Exam: NORMAL BREATHING PATTERN - Cardiovascular Exam Cardiovascular Exam: +S1, +S2 - GI/Abdominal Exam GI & Abdominal Exam: Normal Bowel Sounds Results - Vital Signs Recent Vital Signs: Last Vital Signs Temp 97.7 F 02/15/17 08:00 Pulse 115 H 02/15/17 12:00 Resp 20 02/15/17 08:00 BP 115/76 02/15/17 08:00 Pulse Ox 96 02/15/17 08:00 - Labs Result Diagrams: 02/15/17 07:03 02/15/17 07:03 Labs: Laboratory Results - last 24 hr 02/13/17 02/14/17 02/14/17 18:42 06:19 09:09 WBC RBC Hgb Hct MCV MCH MCHC RDW Plt Count MPV Neut % (Auto) Lymph % (Auto) Alexander % (Auto) Eos % (Auto) Baso % (Auto) Neut # Lymph # Alexander # Eos # Baso # Sodium Potassium Chloride Carbon Dioxide Anion Gap BUN Creatinine Est GFR ( Amer) Est GFR (Non-Af Amer) POC Glucose (mg/dL) Random Glucose Calcium Total Bilirubin AST ALT Alkaline Phosphatase Total Protein Total Protein (PEP) 7.9 Albumin Globulin Albumin/Globulin Ratio Urine Color Urine Clarity Urine pH Ur Specific [place] Urine Protein Urine Glucose (UA) Urine Ketones Urine Blood Urine Nitrate Urine Bilirubin Urine Urobilinogen Ur Leukocyte Esterase Urine WBC (Auto) Urine RBC (Auto) Urine WBC Clumps (Auto) Urine Bacteria Ur Random Creatinine 46 U Random Total Protein 01405 H Urine Chloride 73 02/15/17 02/15/17 02/15/17 06:24 07:03 07:03 WBC 9.8 RBC 3.05 L Hgb 9.2 L Hct 27.7 L MCV 90.9 MCH 30.2 MCHC 33.2 RDW 15.4 H Plt Count 264 MPV 8.6 Neut % (Auto) 34.5 L Lymph % (Auto) 45.2 H Alexander % (Auto) 12.8 H Eos % (Auto) 6.9 H Baso % (Auto) 0.6 Neut # 3.4 Lymph # 4.4 H Alexander # 1.3 H Eos # 0.7 Baso # 0.1 Sodium 141 Potassium 4.4 Chloride 108 H Carbon Dioxide 19 L Anion Gap 18 BUN 56 H Creatinine 4.0 H Est GFR ( Amer) 18 Est GFR (Non-Af Amer) 14 POC Glucose (mg/dL) 114 H Random Glucose 93 Calcium 8.7 Total Bilirubin 0.2 AST 23 ALT 26 Alkaline Phosphatase 90 Total Protein 7.7 Total Protein (PEP) Albumin 3.1 L Globulin 4.5 H Albumin/Globulin Ratio 0.7 L Urine Color Urine Clarity Urine pH Ur Specific [place] Urine Protein Urine Glucose (UA) Urine Ketones Urine Blood Urine Nitrate Urine Bilirubin Urine Urobilinogen Ur Leukocyte Esterase Urine WBC (Auto) Urine RBC (Auto) Urine WBC Clumps (Auto) Urine Bacteria Ur Random Creatinine U Random Total Protein Urine Chloride 02/15/17 02/15/17 02/15/17 11:44 14:13 21:01 WBC RBC Hgb Hct MCV MCH MCHC RDW Plt Count MPV Neut % (Auto) Lymph % (Auto) Alexander % (Auto) Eos % (Auto) Baso % (Auto) Neut # Lymph # Alexander # Eos # Baso # Sodium Potassium Chloride Carbon Dioxide Anion Gap BUN Creatinine Est GFR ( Amer) Est GFR (Non-Af Amer) POC Glucose (mg/dL) 213 H 126 H Random Glucose Calcium Total Bilirubin AST ALT Alkaline Phosphatase Total Protein Total Protein (PEP) Albumin Globulin Albumin/Globulin Ratio Urine Color Yellow Urine Clarity Hazy Urine pH 6.0 Ur Specific [place] 1.006 Urine Protein 2+ H Urine Glucose (UA) Normal Urine Ketones Negative Urine Blood 3+ H Urine Nitrate Negative Urine Bilirubin Negative Urine Urobilinogen Normal Ur Leukocyte Esterase 3+ H Urine WBC (Auto) 89 H Urine RBC (Auto) 75 H Urine WBC Clumps (Auto) Few H Urine Bacteria Rare Ur Random Creatinine U Random Total Protein Urine Chloride Assessment & Plan (1) Anemia Assessment and Plan: hypoproliferative erythroid response anemia of CKD rule out monoclonal protein given elevated globulin gap normal iron/b12/folate stores will add FOBT Status: Chronic (2) Elevated serum globulin level Assessment and Plan: rule out monoclonal protein; w/u sent Status: Acute (3) History of cancer Assessment and Plan: patient reports stomach cancer 25 years ago outpatient GI surveillance Thank you for this interesting consult. Status: Acute
--- NOTE | 2017-02-16 02:23 | CP.PCM.PN ---
Subjective - Date & Time of Evaluation Date of Evaluation: 02/15/17 Time of Evaluation: 15:00 - Subjective Subjective: no events overnight PE: NAD AO times 3 s1s2 present HEENT normal op moist no resp distress abd soft trevino + TRACI/CKD stage 4/HTN/acidosis/anemia/UTI/hydronephrosis/cystitis/abnormal protein levels cr is slowly improving, ddx: prerenal vs obstructive causes continue bicarb gtt for another day acidosis:improving anemia: iron deficient but with active infection, hold on iv iron for now until iv abx are finished uti: abx per primary team urology on board for abnormal ct scan results SPEP/UPEP pending Objective - Vital Signs/Intake and Output Vital Signs (last 24 hours): Temp Pulse Resp BP Pulse Ox 98.4 F 110 H 20 121/83 99 02/15/17 23:30 02/16/17 00:28 02/15/17 23:30 02/15/17 23:30 02/15/17 23:30 Intake and Output: 02/15/17 02/16/17 18:59 06:59 Intake Total 1025 1080 Output Total 1100 2200 Balance -75 -1120 - Medications Medications: Current Medications Acetaminophen (Tylenol 325mg Tab) 650 mg PO Q6 PRN PRN Reason: Fever >100.4 F Carvedilol (Coreg) 3.125 mg PO Q12 [facility] Last Admin: 02/15/17 21:46 Dose: 3.125 mg Enoxaparin Sodium (Lovenox) 30 mg SC DAILY [facility] Last Admin: 02/14/17 11:00 Dose: Not Given Famotidine (Pepcid) 20 mg PO DAILY [facility] Last Admin: 02/15/17 09:35 Dose: 20 mg Finasteride (Proscar) 5 mg PO DAILY [facility] Last Admin: 02/15/17 09:35 Dose: 5 mg Hydralazine HCl (Apresoline) 10 mg IVP Q6H PRN PRN Reason: HTN Sodium Bicarbonate 75 meq/ (Sodium Chloride) 1,075 mls @ 75 mls/hr IV .[id number] [facility] Last Admin: 02/15/17 18:17 Dose: Not Given Ceftriaxone Sodium 1 gm/ (Sodium Chloride) 100 mls @ 100 mls/hr IVPB Q12H [facility] Last Admin: 02/15/17 22:02 Dose: 100 mls/hr Morphine Sulfate (Morphine) 1 mg IV Q6 PRN PRN Reason: Pain, moderate (4-7) Ondansetron HCl (Zofran Inj) 4 mg IVP Q6 PRN PRN Reason: Nausea/Vomiting Rosuvastatin Calcium (Crestor) 5 mg PO HS [facility] Last Admin: 02/15/17 21:46 Dose: 5 mg Tamsulosin HCl (Flomax) 0.8 mg PO DAILY [facility] Last Admin: 02/15/17 09:35 Dose: 0.8 mg - Labs Labs: 02/15/17 07:03 02/15/17 07:03
--- NOTE | 2017-02-16 06:39 | CP.PCM.PN ---
<Wilfred Viera - Last Filed: 02/16/17 15:16> Subjective - Date & Time of Evaluation Date of Evaluation: 02/16/17 Time of Evaluation: 06:38 - Subjective Subjective: PGY-[address] Greene's service: Pt seen and examined at bedside. Nursing reports urine in trevino bag clearer than yesterday, no hematuria. Pt denies pain with urinating but states he feels he strains to push urine out. Pt denies fever, chills, chest pain, abdominal pain, N/V. He reports tolerating diet, and passing BM without issue. Objective - Vital Signs/Intake and Output Vital Signs (last 24 hours): Temp Pulse Resp BP Pulse Ox 98.4 F 110 H 20 121/83 99 02/15/17 23:30 02/16/17 00:28 02/15/17 23:30 02/15/17 23:30 02/15/17 23:30 Intake and Output: 02/15/17 02/16/17 18:59 06:59 Intake Total 1025 1080 Output Total 1100 2700 Balance -75 -1620 - Medications Medications: Current Medications Acetaminophen (Tylenol 325mg Tab) 650 mg PO Q6 PRN PRN Reason: Fever >100.4 F Carvedilol (Coreg) 3.125 mg PO Q12 [facility] Last Admin: 02/15/17 21:46 Dose: 3.125 mg Enoxaparin Sodium (Lovenox) 30 mg SC DAILY [facility] Last Admin: 02/14/17 11:00 Dose: Not Given Famotidine (Pepcid) 20 mg PO DAILY [facility] Last Admin: 02/15/17 09:35 Dose: 20 mg Finasteride (Proscar) 5 mg PO DAILY [facility] Last Admin: 02/15/17 09:35 Dose: 5 mg Hydralazine HCl (Apresoline) 10 mg IVP Q6H PRN PRN Reason: HTN Sodium Bicarbonate 75 meq/ (Sodium Chloride) 1,075 mls @ 75 mls/hr IV .[id number] [facility] Last Admin: 02/15/17 18:17 Dose: Not Given Ceftriaxone Sodium 1 gm/ (Sodium Chloride) 100 mls @ 100 mls/hr IVPB Q12H [facility] Last Admin: 02/15/17 22:02 Dose: 100 mls/hr Morphine Sulfate (Morphine) 1 mg IV Q6 PRN PRN Reason: Pain, moderate (4-7) Ondansetron HCl (Zofran Inj) 4 mg IVP Q6 PRN PRN Reason: Nausea/Vomiting Rosuvastatin Calcium (Crestor) 5 mg PO HS [facility] Last Admin: 02/15/17 21:46 Dose: 5 mg Tamsulosin HCl (Flomax) 0.8 mg PO DAILY [facility] Last Admin: 02/15/17 09:35 Dose: 0.8 mg - Labs Labs: 02/15/17 07:03 02/15/17 07:03 - Constitutional Appears: Non-toxic, No Acute Distress - Head Exam Head Exam: ATRAUMATIC, NORMOCEPHALIC - Eye Exam Eye Exam: EOMI. absent: Scleral icterus Pupil Exam: PERRL - ENT Exam ENT Exam: Mucous Membranes Moist - Respiratory Exam Respiratory Exam: Clear to Ausculation Bilateral, NORMAL BREATHING PATTERN. absent: Rales, Rhonchi, Wheezes - Cardiovascular Exam Cardiovascular Exam: REGULAR RHYTHM, +S1, +S2 - GI/Abdominal Exam GI & Abdominal Exam: Soft, Normal Bowel Sounds. absent: Tenderness - Exam Additional comments: trevino catheter in place, Clear urine in bag - Neurological Exam Neurological Exam: Alert, Awake, Oriented x3 - Psychiatric Exam Psychiatric exam: Normal Affect, Normal Mood - Skin Skin Exam: Dry, Normal Color, Warm - Additional Findings Additional findings: - Constitutional Appears: Non-toxic, No Acute Distress - Head Exam Head Exam: ATRAUMATIC, NORMOCEPHALIC - Eye Exam Eye Exam: EOMI, PERRL. absent: Scleral icterus - ENT Exam ENT Exam: Mucous Membranes Moist - Respiratory Exam Respiratory Exam: Clear to Ausculation Bilateral, NORMAL BREATHING PATTERN. absent: Rales, Rhonchi, Wheezes - Cardiovascular Exam Cardiovascular Exam: REGULAR RHYTHM, +S1, +S2 - GI/Abdominal Exam GI & Abdominal Exam: Soft, Normal Bowel Sounds. absent: Tenderness - Exam Additional comments: trevino catheter in place: trevino bag with clearer urine today, slight red tinge but not marcus hematuria - Extremities Exam Extremities Exam: Normal Inspection. absent: Pedal Edema - Back Exam Back Exam: absent: CVA tenderness (L), CVA tenderness (R) - Neurological Exam Neurological Exam: Alert, Awake, Oriented x3 - Psychiatric Exam Psychiatric exam: Normal Affect, Normal Mood - Skin Skin Exam: Dry, Normal Color, Warm Assessment and Plan - Assessment and Plan (Free Text) Plan: 1) Acute on Chronic Renal Failure Urinary Tract Infection Enlarged Prostate * Dr. Hinojosa; Nephrology-->f/u recommendations * Dr. Forman; Urology-->was called by the resident on admission, and called by the night-time resident given the result of Renal US * May 2015: 1.8--->On admission: 5.7 * Improving * Order for renal ultrasound for hydronephrosis * Renal US (02/13/17): echogenic renal parenchyma may be seen in setting of medical renal disease * Mild hydronpehrosis bilaterally. Evidence of right sided hydroureter. Right renal cyst measuring 4.1 cm on the right. * Postvoid urinary bladder measures approximately 390.8ml * Trevino placed following result of renal US * Patient has history of BPH with slightly decreased GFR; patient states he has been having more trouble going to the bathroom recently * Urology consult * PSA ordered on admission * C/w home medications:Flomax 0.8mg PO daily and Proscar 5mg PO daily * Ordered for immunofixation, SPEP, UPEP * pending * Abnormal UA on admission, urine culture collected in the ED * UA: +protein, 2+ blood, 3+ esterase, 950 WBC, 53 RBC, rare bacteria * Urine culture Contaminated, repeat * Repeat culture: No growth * Will most likely need cystoscopy as outpatient * Patient started on Rocephin 1 gram IV q daily (active since 02/13/17) * Patient start NS 100cc/hr * Held Lisinopril on admission in light of acute kidney injury 2) History of Hypertension * c/w carvedilol 3.125mg PO Q 12H * hold Lisinopril in TRACI * echo done 05/21 with MUGA; both normal w/ EF 65% with no wall motion abnormalities 3) Diabetes * newly diagnosed * Hgba1c: 6.7 * ems educator 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 Willa Epps) on consult * Patient was seen by Dr. Willa Epps in the past for anemia * believes anemia of CKD, f/u FOBT * currently 9.0 * no signs of bleeding; appears to be around baseline per review of EMR * Traumatic insertion of Trevino suspected; lovenox held * f/u anemia workup * iron: 36 * %iron: 19 * TIBC: 196 * Reticulocyte: 1.4 * Ferritin: 191 * B12: >1000 * Folate >20.0 5) Elevated Serum Protein * Pep and Immunofixation ordered; f/u results * patient does report bone pain/unintentional weight loss/decreased appetite the last few months in light on acute on chronic kidney renal insufficiency; possible multiple myeloma given anemia, bone patient 6) Previous Liver Lesion of unknown etiology * CT abd/pelvis (02/14/17): Prior left hepatic lesion not identified currently with no definitive findings appreciated at the liver in unenhanced exam. * f/u US ABD * liver enzymes WNL * AFP: WNL 7) Lipid disorder * Crestor 5mg PO qHS * Lipid panel in AM 8) History of stomach cancer * Pt reports treated 25 years ago * Dr. Epps recommends outpatient GI surveillance 9) Prophylactic * Pepcid 20mg PO daily * Simethicone 80 mg Q6H PRN for gas pain * Restarted Lovenox 30mg (hematuria has resolved) * SCDS b/l * Tylenol 650mg PO Q6 PRN >100.4F * Renal Heart Healthy Diet * Full code Wilfred Maldonadogadiel PGY-2 <Luz Maria Greene V - Last Filed: 02/16/17 16:38> Objective - Vital Signs/Intake and Output Vital Signs (last 24 hours): Temp Pulse Resp BP Pulse Ox 98.1 F 83 18 143/84 100 02/16/17 15:55 02/16/17 15:55 02/16/17 15:55 02/16/17 15:55 02/16/17 15:55 Intake and Output: 02/16/17 02/16/17 06:59 18:59 Intake Total 1080 Output Total 2700 Balance -1620 - Medications Medications: Current Medications Acetaminophen (Tylenol 325mg Tab) 650 mg PO Q6 PRN PRN Reason: Fever >100.4 F Carvedilol (Coreg) 3.125 mg PO Q12 [facility] Last Admin: 02/16/17 09:50 Dose: 3.125 mg Enoxaparin Sodium (Lovenox) 30 mg SC DAILY [facility] Last Admin: 02/14/17 11:00 Dose: Not Given Famotidine (Pepcid) 20 mg PO DAILY [facility] Last Admin: 02/16/17 09:50 Dose: 20 mg Finasteride (Proscar) 5 mg PO DAILY [facility] Last Admin: 02/16/17 09:50 Dose: 5 mg Hydralazine HCl (Apresoline) 10 mg IVP Q6H PRN PRN Reason: HTN Sodium Bicarbonate 75 meq/ (Sodium Chloride) 1,075 mls @ 75 mls/hr IV .[id number] [facility] Last Admin: 02/15/17 18:17 Dose: Not Given Ceftriaxone Sodium 1 gm/ (Sodium Chloride) 100 mls @ 100 mls/hr IVPB Q12H [facility] Last Admin: 02/16/17 12:59 Dose: 100 mls/hr Morphine Sulfate (Morphine) 1 mg IV Q6 PRN PRN Reason: Pain, moderate (4-7) Ondansetron HCl (Zofran Inj) 4 mg IVP Q6 PRN PRN Reason: Nausea/Vomiting Rosuvastatin Calcium (Crestor) 5 mg PO HS [facility] Last Admin: 02/15/17 21:46 Dose: 5 mg Simethicone (Mylicon Chew Tab) 80 mg PO Q6H PRN PRN Reason: GI distress Tamsulosin HCl (Flomax) 0.8 mg PO DAILY [facility] Last Admin: 02/16/17 09:50 Dose: 0.8 mg - Labs Labs: 02/16/17 08:22 02/16/17 08:22 Attending/Attestation - Attestation I have personally seen and examined this patient.: Yes I have fully participated in the care of the patient.: Yes I have reviewed all pertinent clinical information, including history, physical exam and plan: Yes Notes (Text): Assessment/Plan 1) Acute on Chronic Renal Failure Urinary Tract Infection Enlarged Prostate * Dr. Hinojosa; Nephrology-->f/u recommendations * Dr. Forman; Urology-->was called by the resident on admission, and called by the night-time resident given the result of Renal US * May 2015: 1.8--->On admission: 5.7 * Improving * 02/16: BUN/Cr: 49/3.3 * Order for renal ultrasound for hydronephrosis * Renal US (02/13/17): echogenic renal parenchyma may be seen in setting of medical renal disease * Mild hydronpehrosis bilaterally. Evidence of right sided hydroureter. Right renal cyst measuring 4.1 cm on the right. * Postvoid urinary bladder measures approximately 390.8ml * Trevino placed following result of renal US on admission * Patient has history of BPH with slightly decreased GFR; patient states he has been having more trouble going to the bathroom recently * Urology consult * PSA ordered on admission * C/w home medications:Flomax 0.8mg PO daily and Proscar 5mg PO daily * Per urology, maintain the trevino catheter for at least ten days to see if his kidney function continues to improve. Reports can be seen in the office follow- up in 1 week; that will determine when to remove his trevino catheter * Ordered for immunofixation, SPEP, UPEP * pending * Abnormal UA on admission, urine culture collected in the ED * UA: +protein, 2+ blood, 3+ esterase, 950 WBC, 53 RBC, rare bacteria * Rocephin 1 gram IVQ12H (active since 02/13/17( * Urine culture (02/13/17): contaminated * Urine culture (02/15/17): no growth * Patient start NS 100cc/hr * Held Lisinopril on admission in light of acute kidney injury 2) History of Hypertension * c/w carvedilol 3.125mg PO Q 12H * hold Lisinopril in TRACI * echo done 05/21 with MUGA; both normal w/ EF 65% with no wall motion abnormalities 3) Diabetes * newly diagnosed * Hgba1c: 6.7 * ems educator and dietary referral * Accuchecks QAC and HS * Lipid panel-->pending * Microalbumin 4) Anemia;Chronic * hematology/oncology (Dr. Willa Epps) on consult * Patient was seen by Dr. Willa Epps in the past for anemia * currently 9.2 * no signs of bleeding; appears to be around baseline per review of EMR * Traumatic insertion of Trevino suspected * Urine clearer; Lovenox 30mg subqdaily * f/u anemia workup * iron: 36 * %iron: 19 * TIBC: 196 * Reticulocyte: 1.4 * Ferritin: 191 * B12: >1000 * Folate >20.0 5) Elevated Serum Protein * Pep and Immunofixation ordered; f/u results * patient does report bone pain/unintentional weight loss/decreased appetite the last few months in light on acute on chronic kidney renal insufficiency; possible multiple myeloma given anemia, bone patient 6) Previous Liver Lesion of unknown etiology * CT abd/pelvis ordered for AM; previous CT recommended liver scans * liver enzymes WNL; alpha feta protein: 2.0 7) Lipid disorder * Crestor 5mg PO qHS * Lipid panel in AM 8) Prophylactic * Pepcid 20mg PO daily * resumed ovenox 30mg subqdaily secondary to hematuria * SCDS b/l * Tylenol 650mg PO Q6 PRN >100.4F * Renal Heart Healthy Diet * Full code Disposition: Patient will need trevino care; pending spep/upep/immunofixation; pending clearance from nephrology for discharge planning; patient does not to go to rehab; his plan is to go home.
[2017-02-16 09:00] LABS: BASO # 0.1 K/uL (0.0-0.2); BASO % 0.8 % (0.0-2.0); EOS # 0.8 K/uL (0.0-0.7); EOS % 8.3 % (0.0-4.0); HEMATOCRIT 27.2 % (35.0-51.0); LYMPH % 43.1 % (20.0-40.0); MEAN CELL VOLUME 90.2 fL (80.0-94.0); MEAN CORPUSCULAR HGB CONC 33.2 g/dL (33.0-37.0); MEAN PLATELET VOLUME 8.7 fL (7.2-11.7); MONO # 1.1 K/uL (0.0-0.8); MONO % 12.2 % (0.0-10.0); NRBC % 0.1 % (0.0-2.0); RED CELL DISTRIBUTION WIDTH 15.6 % (11.5-14.5); WHITE BLOOD COUNT 9.3 K/uL (4.8-10.8)
[2017-02-16 09:31] LABS: POTASSIUM 4.5 mmol/L (3.6-5.2)
[2017-02-16 09:33] LABS: BILIRUBIN,TOTAL 0.3 mg/dL (0.2-1.3)
[2017-02-16 09:34] LABS: CALCIUM 8.9 mg/dl (8.6-10.4); TOTAL PROTEIN 8.2 g/dL (6.3-8.3)
[2017-02-16 09:35] LABS: MAGNESIUM 1.7 mg/dL (1.6-2.3)
[2017-02-16 09:40] LABS: ALB/GLOB RATIO 0.6 (1.0-2.1)
[2017-02-16] MEDS ORDERED: Simethicone 80 mg Chewtab PO PRN (15:14)
--- NOTE | 2017-02-16 15:41 | PN ---
DATE OF FOLLOWUP: 02/16/2017 TIME OF FOLLOWUP: Roughly 12:08 p.m. SUBJECTIVE: The patient is currently resting very comfortably this afternoon with Falk draining carlos alberto urine well. He does complain of some intermittent lower abdominal discomfort. PHYSICAL EXAMINATION: ABDOMEN: His physical exam today his abdomen soft, nondistended, nontender. No CVA tenderness. Minimal suprapubic tenderness. LABORATORY DATA: Laboratory evaluation on 02/16/2017, shows CBC with WBC count of 9.3, hemoglobin of 9.0, hematocrit of 27.2 and platelet count of 283,000. His chemistry profile shows a sodium 140, potassium 4.5, chloride 108, CO2 21, BUN and creatinine of 49 and 3.3, which has improved since admission with the Falk catheter and his GFR is 22, which has also improved since admission. His random glucose is 105 and his calcium was 8.9. His urine culture on 02/13/2017, showed 10 to 15,000 colonies of multiple species and probable contamination and a repeat urine culture done on 02/15/2017 on IV antibiotic showed no growth. DIAGNOSTIC IMPRESSION: 1. Urinary retention. 2. Benign prostatic hypertrophy. 3. Acute renal failure. 4. Probable cystitis. 5. Bilateral mild hydronephrosis. PLAN: For this patient is to maintain the Falk catheter for at least 10 days to see if his kidney function continues to improve. Treat his cystitis with IV antibiotics and eventually p.o. antibiotics. Maintain the patient on his current medications, which includes IV Rocephin and his medications for BPH and urinary retention which include tamsulosin 0.8 mg daily and finasteride 5 mg daily. The patient can be seen in office followup in 1 week. At that time, we will make a decision to remove his Falk catheter and give the patient a voiding trial. Milad Forman MD MTDD
--- NOTE | 2017-02-16 18:22 | CARD ---
APPROVED REPORT EKG Measurement Heart [id number] <Conclusion> Normal sinus rhythm Nonspecific T wave abnormality Abnormal ECG
--- NOTE | 2017-02-17 00:11 | CP.PCM.PN ---
Subjective - Date & Time of Evaluation Date of Evaluation: 02/16/17 Time of Evaluation: 14:00 - Subjective Subjective: no events overnight. no sob PE: NAD AO times 3 s1s2 present HEENT normal op moist no resp distress abd soft trevino + TRACI/CKD stage 4/HTN/acidosis/anemia/UTI/hydronephrosis/cystitis/abnormal protein levels cr is slowly improving, ddx: prerenal vs obstructive causes on iv fluids acidosis:improving anemia: iron deficient but with active infection, hold on iv iron for now until iv abx are finished uti: abx per primary team urology on board for abnormal ct scan results ( HN and cystitis) work up for abnormal paraproteinemia is pending Objective - Vital Signs/Intake and Output Vital Signs (last 24 hours): Temp Pulse Resp BP Pulse Ox 98.1 F 83 18 143/84 100 02/16/17 15:55 02/16/17 18:09 02/16/17 15:55 02/16/17 15:55 02/16/17 15:55 Intake and Output: 02/16/17 02/17/17 18:59 06:59 Intake Total 1100 Output Total 1000 Balance 100 - Medications Medications: Current Medications Acetaminophen (Tylenol 325mg Tab) 650 mg PO Q6 PRN PRN Reason: Fever >100.4 F Carvedilol (Coreg) 3.125 mg PO Q12 [facility] Last Admin: 02/16/17 21:41 Dose: Not Given Enoxaparin Sodium (Lovenox) 30 mg SC DAILY [facility] Last Admin: 02/14/17 11:00 Dose: Not Given Famotidine (Pepcid) 20 mg PO DAILY [facility] Last Admin: 02/16/17 09:50 Dose: 20 mg Finasteride (Proscar) 5 mg PO DAILY [facility] Last Admin: 02/16/17 09:50 Dose: 5 mg Hydralazine HCl (Apresoline) 10 mg IVP Q6H PRN PRN Reason: HTN Sodium Bicarbonate 75 meq/ (Sodium Chloride) 1,075 mls @ 75 mls/hr IV .[id number] [facility] Last Admin: 02/15/17 18:17 Dose: Not Given Ceftriaxone Sodium 1 gm/ (Sodium Chloride) 100 mls @ 100 mls/hr IVPB Q12H [facility] Last Admin: 02/16/17 22:11 Dose: 100 mls/hr Morphine Sulfate (Morphine) 1 mg IV Q6 PRN PRN Reason: Pain, moderate (4-7) Ondansetron HCl (Zofran Inj) 4 mg IVP Q6 PRN PRN Reason: Nausea/Vomiting Rosuvastatin Calcium (Crestor) 5 mg PO HS [facility] Last Admin: 02/16/17 21:41 Dose: 5 mg Simethicone (Mylicon Chew Tab) 80 mg PO Q6H PRN PRN Reason: GI distress Tamsulosin HCl (Flomax) 0.8 mg PO DAILY [facility] Last Admin: 02/16/17 09:50 Dose: 0.8 mg - Labs Labs: 02/16/17 08:22 02/16/17 08:22
[2017-02-17 03:15] VITALS: RESP 20
--- NOTE | 2017-02-17 07:38 | CP.PCM.PN ---
Objective - Vital Signs/Intake and Output Vital Signs (last 24 hours): Temp Pulse Resp BP Pulse Ox 98.2 F 91 H 20 112/67 98 02/17/17 04:00 02/17/17 04:00 02/17/17 04:00 02/17/17 04:00 02/17/17 04:00 Intake and Output: 02/17/17 02/17/17 06:59 18:59 Intake Total 1800 Output Total 1725 Balance 75 - Medications Medications: Current Medications Acetaminophen (Tylenol 325mg Tab) 650 mg PO Q6 PRN PRN Reason: Fever >100.4 F Carvedilol (Coreg) 3.125 mg PO Q12 [facility] Last Admin: 02/16/17 21:41 Dose: Not Given Enoxaparin Sodium (Lovenox) 30 mg SC DAILY [facility] Last Admin: 02/14/17 11:00 Dose: Not Given Famotidine (Pepcid) 20 mg PO DAILY [facility] Last Admin: 02/16/17 09:50 Dose: 20 mg Finasteride (Proscar) 5 mg PO DAILY [facility] Last Admin: 02/16/17 09:50 Dose: 5 mg Hydralazine HCl (Apresoline) 10 mg IVP Q6H PRN PRN Reason: HTN Sodium Bicarbonate 75 meq/ (Sodium Chloride) 1,075 mls @ 75 mls/hr IV .[id number] [facility] Last Admin: 02/16/17 23:30 Dose: Not Given Ceftriaxone Sodium 1 gm/ (Sodium Chloride) 100 mls @ 100 mls/hr IVPB Q12H [facility] Last Admin: 02/16/17 22:11 Dose: 100 mls/hr Morphine Sulfate (Morphine) 1 mg IV Q6 PRN PRN Reason: Pain, moderate (4-7) Ondansetron HCl (Zofran Inj) 4 mg IVP Q6 PRN PRN Reason: Nausea/Vomiting Rosuvastatin Calcium (Crestor) 5 mg PO HS [facility] Last Admin: 02/16/17 21:41 Dose: 5 mg Simethicone (Mylicon Chew Tab) 80 mg PO Q6H PRN PRN Reason: GI distress Tamsulosin HCl (Flomax) 0.8 mg PO DAILY [facility] Last Admin: 02/16/17 09:50 Dose: 0.8 mg - Labs Labs: 02/16/17 08:22 02/16/17 08:22
[2017-02-17 08:08] LABS: BASO # 0.1 K/uL (0.0-0.2); BASO % 0.9 % (0.0-2.0); EOS # 0.9 K/uL (0.0-0.7); EOS % 8.7 % (0.0-4.0); HEMATOCRIT 27.4 % (35.0-51.0); LYMPH # 4.5 K/uL (1.0-4.3); LYMPH % 45.5 % (20.0-40.0); MEAN CELL VOLUME 90.1 fL (80.0-94.0); MEAN CORPUSCULAR HEMOGLOBIN 29.9 pg (27.0-31.0); MEAN CORPUSCULAR HGB CONC 33.2 g/dL (33.0-37.0); MEAN PLATELET VOLUME 8.6 fL (7.2-11.7); MONO # 1.4 K/uL (0.0-0.8); RED CELL DISTRIBUTION WIDTH 15.5 % (11.5-14.5); WHITE BLOOD COUNT 9.8 K/uL (4.8-10.8)
[2017-02-17 08:39] LABS: POTASSIUM 4.4 mmol/L (3.6-5.2)
[2017-02-17 08:41] LABS: ALB/GLOB RATIO 0.7 (1.0-2.1); BILIRUBIN,TOTAL 0.4 mg/dL (0.2-1.3); TOTAL PROTEIN 7.5 g/dL (6.3-8.3)
[2017-02-17 08:42] LABS: CALCIUM 8.1 mg/dl (8.6-10.4); MAGNESIUM 1.6 mg/dL (1.6-2.3); PHOSPHOROUS 3.8 mg/dL (2.5-4.5)
--- NOTE | 2017-02-17 09:33 | CP.PCM.PN ---
Subjective - Date & Time of Evaluation Date of Evaluation: 02/17/17 Time of Evaluation: 09:30 - Subjective Subjective: Patient and bed appears to be comfortable No acute distress reported No vomiting Objective - Vital Signs/Intake and Output Vital Signs (last 24 hours): Temp Pulse Resp BP Pulse Ox 97.8 F 93 H 20 131/80 95 02/17/17 08:50 02/17/17 08:50 02/17/17 08:50 02/17/17 08:50 02/17/17 08:50 Intake and Output: 02/17/17 02/17/17 06:59 18:59 Intake Total 1800 Output Total 1725 Balance 75 - Medications Medications: Current Medications Acetaminophen (Tylenol 325mg Tab) 650 mg PO Q6 PRN PRN Reason: Fever >100.4 F Carvedilol (Coreg) 3.125 mg PO Q12 [facility] Last Admin: 02/16/17 21:41 Dose: Not Given Enoxaparin Sodium (Lovenox) 30 mg SC DAILY [facility] Last Admin: 02/14/17 11:00 Dose: Not Given Famotidine (Pepcid) 20 mg PO DAILY [facility] Last Admin: 02/16/17 09:50 Dose: 20 mg Finasteride (Proscar) 5 mg PO DAILY [facility] Last Admin: 02/16/17 09:50 Dose: 5 mg Hydralazine HCl (Apresoline) 10 mg IVP Q6H PRN PRN Reason: HTN Sodium Bicarbonate 75 meq/ (Sodium Chloride) 1,075 mls @ 75 mls/hr IV .[id number] [facility] Last Admin: 02/17/17 07:37 Dose: 75 mls/hr Ceftriaxone Sodium 1 gm/ (Sodium Chloride) 100 mls @ 100 mls/hr IVPB Q12H [facility] Last Admin: 02/16/17 22:11 Dose: 100 mls/hr Morphine Sulfate (Morphine) 1 mg IV Q6 PRN PRN Reason: Pain, moderate (4-7) Ondansetron HCl (Zofran Inj) 4 mg IVP Q6 PRN PRN Reason: Nausea/Vomiting Rosuvastatin Calcium (Crestor) 5 mg PO HS [facility] Last Admin: 02/16/17 21:41 Dose: 5 mg Simethicone (Mylicon Chew Tab) 80 mg PO Q6H PRN PRN Reason: GI distress Tamsulosin HCl (Flomax) 0.8 mg PO DAILY [facility] Last Admin: 02/16/17 09:50 Dose: 0.8 mg - Labs Labs: 02/17/17 08:01 02/17/17 08:01 - Constitutional Appears: No Acute Distress - ENT Exam ENT Exam: Mucous Membranes Moist - Respiratory Exam Respiratory Exam: NORMAL BREATHING PATTERN. absent: Chest Wall Tenderness, Rales - GI/Abdominal Exam GI & Abdominal Exam: Soft, Normal Bowel Sounds - Extremities Exam Extremities Exam: absent: Calf Tenderness - Back Exam Back Exam: absent: CVA tenderness (L), CVA tenderness (R) - Neurological Exam Neurological Exam: Alert Assessment and Plan (1) Acute on chronic renal failure Assessment & Plan: Kidney function appears to be stable with serum creatinine about the same level more or less Hydronephrosis as reported on the ultrasound and CAT scan Urology on board after putting Falk catheter and see what happens Continue monitoring kidney function Patient reported to have history of stomach cancer? Many years ago Diabetes mellitus and hypertension history Status: Acute (2) History of cancer Status: Acute
--- NOTE | 2017-02-17 12:22 | US ---
Abdominal ultrasound History: Follow-up lesion. Comparison: CT scan dated 02/14/2017 Technique: Real-time sonography was performed through the abdomen. Findings: Liver: 13.2 centimeters in length. Increased echogenicity of the hepatic parenchymal cortex suggestive for fatty infiltration versus hepatic parenchymal disease. Gallbladder: Cholelithiasis measuring up to 1.6 centimeters. Normal wall thickness of 1.6 millimeters. Negative sonographic Kaur's sign. Common bile duct measures 4.2 millimeters, within normal limits. Limited visualization of the pancreas. Spleen measures 9.5 centimeters in length, within normal limits. Visualized aorta and IVC are preserved. Right kidney: 11.2 x 6.3 x 5.7 centimeters. Increased echogenicity of the renal cortex. Mild right renal hydronephrosis. Again identified are multiple renal hypoechoic cysts for example a midpole cyst measures 3.2 x 2.6 x 2.9 centimeters and a lower pole cyst measures 3.0 x 3.2 x 2.8 centimeters. Left Kidney: 11.6 x 6.0 x 5.9 centimeters. Increased echogenicity of the renal cortex. No calculi or hydronephrosis. Impression: Increased echogenicity of the hepatic parenchymal cortex suggestive for fatty infiltration versus hepatic parenchymal disease. Cholelithiasis. Limited visualization of the pancreas. Right renal cysts. Mild right renal hydronephrosis. Increased echogenicity of the bilateral renal parenchymal cortices suggestive for medical renal disease.
[2017-02-17] MEDS: Enoxaparin 30 mg Syringe SC SCH (14:01)
--- NOTE | 2017-02-17 17:01 | CP.PCM.DIS ---
Provider - Provider Date of Admission: 02/13/17 16:22 Attending physician: Venkat Dudley MD Consults: Dr. Hinojosa-nephrology Dr. Forman-urology Dr. Epps-heme/onc Time Spent in preparation of Discharge (in minutes): 45 Diagnosis - Discharge Diagnosis (1) Acute on chronic renal failure Status: Acute (2) Benign prostate hyperplasia Status: Acute (3) Urinary tract infection Status: Acute (4) History of hypertension Status: Chronic (5) Diabetes Status: Chronic (6) Chronic anemia Status: Chronic (7) Elevated serum protein level Status: Acute (8) Lipid disorder Status: Chronic (9) Prophylactic measure Status: Acute Hospital Course - Lab Results Lab Results: Micro Results 02/15/17 06:43 Blood Blood Culture - Preliminary NO GROWTH AFTER 24 HOURS 02/15/17 06:15 Blood Blood Culture - Preliminary NO GROWTH AFTER 24 HOURS 02/15/17 10:53 Urine Urine Culture - Final No Growth (<1,000 CFU/ML) 02/13/17 17:00 Urine Urine Culture - Final 10-50,000 CFU/ML. MULTIPLE SPECIES. PROBABLE CONTAMINATION. Most Recent Lab Values WBC 9.8 K/uL (4.8-10.8) 02/17/17 08:01 RBC 3.05 Mil/uL (4.40-5.90) L 02/17/17 08:01 Hgb 9.1 g/dL (12.0-18.0) L 02/17/17 08:01 Hct 27.4 % (35.0-51.0) L 02/17/17 08:01 MCV 90.1 fL (80.0-94.0) 02/17/17 08:01 MCH 29.9 pg (27.0-31.0) 02/17/17 08:01 MCHC 33.2 g/dL (33.0-37.0) 02/17/17 08:01 RDW 15.5 % (11.5-14.5) H 02/17/17 08:01 Plt Count 263 K/uL (130-400) 02/17/17 08:01 MPV 8.6 fL (7.2-11.7) 02/17/17 08:01 Neut % (Auto) 30.9 % (50.0-75.0) L 02/17/17 08:01 Lymph % (Auto) 45.5 % (20.0-40.0) H 02/17/17 08:01 Tate % (Auto) 14.0 % (0.0-10.0) H 02/17/17 08:01 Eos % (Auto) 8.7 % (0.0-4.0) H 02/17/17 08:01 Baso % (Auto) 0.9 % (0.0-2.0) 02/17/17 08:01 Neut # 3.0 K/uL (1.8-7.0) 02/17/17 08:01 Lymph # 4.5 K/uL (1.0-4.3) H 02/17/17 08:01 Tate # 1.4 K/uL (0.0-0.8) H 02/17/17 08:01 Eos # 0.9 K/uL (0.0-0.7) H 02/17/17 08:01 Baso # 0.1 K/uL (0.0-0.2) 02/17/17 08:01 Retic Count 1.4 % (0.5-1.5) D 02/14/17 06:19 Sodium 136 mmol/L (132-148) 02/17/17 08:01 Potassium 4.4 mmol/L (3.6-5.2) 02/17/17 08:01 Chloride 105 mmol/L (98-107) 02/17/17 08:01 Carbon Dioxide 21 mmol/L (22-30) L 02/17/17 08:01 Anion Gap 14 (10-20) 02/17/17 08:01 BUN 50 mg/dL (9-20) H 02/17/17 08:01 Creatinine 3.4 mg/dL (0.8-1.5) H 02/17/17 08:01 Est GFR ( Amer) 21 02/17/17 08:01 Est GFR (Non-Af Amer) 17 02/17/17 08:01 POC Glucose (mg/dL) 147 mg/dL (65-110) H 02/17/17 16:31 Random Glucose 90 mg/dL (75-110) 02/17/17 08:01 Hemoglobin A1c 6.7 % (4.2-6.5) H 02/14/17 06:19 Calcium 8.1 mg/dl (8.6-10.4) L 02/17/17 08:01 Phosphorus 3.8 mg/dL (2.5-4.5) 02/17/17 08:01 Magnesium 1.6 mg/dL (1.6-2.3) 02/17/17 08:01 Iron 36 ug/dL (49-181) L 02/14/17 06:19 TIBC 196 ug/dL (250-450) L 02/14/17 06:19 % Saturation 19 (20-55) L 02/14/17 06:19 Ferritin 191.0 ng/mL 02/14/17 06:19 Total Bilirubin 0.4 mg/dL (0.2-1.3) 02/17/17 08:01 AST 23 U/L (17-59) 02/17/17 08:01 ALT 20 U/L (21-72) L 02/17/17 08:01 Alkaline Phosphatase 95 U/L (38-126) 02/17/17 08:01 Total Protein 7.5 g/dL (6.3-8.3) 02/17/17 08:01 Total Protein (PEP) 7.9 g/dL (6.1-8.1) 02/14/17 06:19 Albumin 3.2 g/dL (3.5-5.0) L 02/17/17 08:01 Globulin 4.3 gm/dL (2.2-3.9) H 02/17/17 08:01 Albumin/Globulin Ratio 0.7 (1.0-2.1) L 02/17/17 08:01 Neitz-5-Bcpvanptw TEST NOT PERFORMED 02/14/17 09:09 Haqso-4-Nsnaysiur TEST NOT PERFORMED 02/14/17 09:09 Beta Globulins TEST NOT PERFORMED 02/14/17 09:09 Gamma Globulins TEST NOT PERFORMED 02/14/17 09:09 Triglycerides 51 mg/dL (0-149) 02/17/17 08:01 Cholesterol 93 mg/dL (0-199) 02/17/17 08:01 LDL Cholesterol Direct 44 mg/dL (0-129) 02/17/17 08:01 HDL Cholesterol 30 mg/dL (30-70) 02/17/17 08:01 Alpha Fetoprotein 2.0 ng/mL (0.0-7.5) 02/14/17 06:19 Prostate Specific Ag 0.348 ng/mL (0.00-4.0) 02/14/17 06:19 Vitamin B12 > 1000 pg/mL (239-931) H 02/14/17 06:19 Folate > 20.0 ng/mL 02/14/17 06:19 Urine Color Yellow (YELLOW) 02/15/17 14:13 Urine Clarity Hazy (Clear) 02/15/17 14:13 Urine pH 6.0 (5.0-8.0) 02/15/17 14:13 Ur Specific [place] 1.006 (1.003-1.030) 02/15/17 14:13 Urine Protein 2+ mg/dL (NEGATIVE) H 02/15/17 14:13 Urine Glucose (UA) Normal mg/dL (Normal) 02/15/17 14:13 Urine Ketones Negative mg/dL (NEGATIVE) 02/15/17 14:13 Urine Blood 3+ (NEGATIVE) H 02/15/17 14:13 Urine Nitrate Negative (NEGATIVE) 02/15/17 14:13 Urine Bilirubin Negative (NEGATIVE) 02/15/17 14:13 Urine Urobilinogen Normal mg/dL (0.2-1.0) 02/15/17 14:13 Ur Leukocyte Esterase 3+ Eric/uL (Negative) H 02/15/17 14:13 Urine WBC (Auto) 89 /hpf (0-5) H 02/15/17 14:13 Urine RBC (Auto) 75 /hpf (0-3) H 02/15/17 14:13 Urine WBC Clumps (Auto) Few /hpf (NONE) H 02/15/17 14:13 Urine Bacteria Rare (<OCC) 02/15/17 14:13 Ur Random Creatinine 46 mg/dL (20-370) 02/14/17 09:09 U Random Total Protein 44628 mg/g creat (22-128) H 02/14/17 09:09 Ur Random Sodium 76 mmol/L 02/13/17 18:42 Urine Chloride 73 mmol/L (32-290) 02/13/17 18:42 Urine Albumin (PEP) TEST NOT PERFORMED 02/14/17 09:09 Ur Protein Fractions TNP 02/14/17 09:09 - Hospital Course Hospital Course: On admission: "This patient is an 81yo M with a PMhx of HTN, HLD, OA, CKD stage 2, previous "stomach cancer" and previous admission for sepsis 2/ to PNA w/ acute respiratory failure who is coming in from his post commander. Dr. Hinojosa (on consult) for TRACI on CKD. He has no acute complaints today other than it has been difficult to urinate for quite some time now, feel the urge to go, and very little comes out. He states he feels like he always has to go to the bathroom. He denies fevers/chills, MEDEIROS, CP, SOB, abdominal pain, N/V/D, dysuraia/ freq/urg, or lower extremity pain/swelling." Hospital Course: Patient admitted for acute on chronic kidney disease. Likely acute renal failure secondary to outflow obstruction due to BPH. Dr. Hinojosa post commander consulted for TRACI on CKD and Dr. Forman urologist consulted for BPH with TRACI on CKD. Dr. Epps heme/onc consulted for anemia. Renal US (02/13/17): echogenic renal parenchyma may be seen in setting of medical renal disease. Mild hydronpehrosis bilaterally. Evidence of right sided hydroureter. Right renal cyst measuring 4.1 cm on the right. Trevino placed on day of admission, and since then, patient's renal status has been improving. This was the case although the patient has also been having blood tinged urine, suspected likely due to traumatic insertion. The urine began to clear up day by day. Immunofixation, SPEP/UPEP studies pending at time of discharge. Per urology note, patient is to maintain the trevino catheter for at least ten days to see if his kidney function continues to improve. The note states patient can be seen in the office for follow-up within [address] Forman will then determine when to remove his trevino catheter and initiate voiding trial. Dr. Hinojosa was called and spoken with by the director of medical review. Given patient's improvement in renal status, Dr. Hinojosa cleared the patient for discharge and requested follow up with the patient within 1 week. Patient made aware of the need for follow up with the post commander and urologist. UA at time of admission: +protein, 2+ blood, 3+ esterase, 950 WBC, 53 RBC, rare bacteria. First urine cultures resulted as contaminant. Repeat cultures negative. Patient has been on Rocephin 1 gm Q12 since admission, and on discharge was given renally dosed Keflex 250 mg Q12 for 10 days. Patient initially denied LEE early during hospital course but then requested it. Patient discharged to [facility]. This is a summary of the hospital course. For more information, please refer to the hospital records. Discharge Exam - Head Exam Head Exam: ATRAUMATIC, NORMOCEPHALIC - Eye Exam Eye Exam: EOMI, PERRL - ENT Exam ENT Exam: Mucous Membranes Moist - Respiratory Exam Respiratory Exam: Clear to PA & Lateral, NORMAL BREATHING PATTERN. absent: Rales, Rhonchi, Wheezes - Cardiovascular Exam Cardiovascular Exam: REGULAR RHYTHM, +S1, +S2 - GI/Abdominal Exam GI & Abdominal Exam: Normal Bowel Sounds, Soft. absent: Tenderness - Exam Additional comments: trevino catheter draining clear yellow urine in the tubing to the bag - Extremities Exam Extremities exam: pedal pulses present - Neurological Exam Neurological exam: Alert, CN II-XII Intact, Oriented x3 - Psychiatric Exam Psychiatric exam: Normal Affect, Normal Mood - Skin Skin Exam: Dry, Normal Color, Warm Discharge Plan - Discharge Medications Prescriptions: Cephalexin [cephalexin] 250 mg PO Q12H 10 Days #20 cap - Follow Up Plan Condition: STABLE Disposition: REHAB FACILITY/REHAB UNIT Instructions: Cephalexin (By mouth), Acute Kidney Injury (DC), Chronic Kidney Disease (DC), Renal Failure Diet (DC), Heart Healthy Diet (DC) Additional Instructions: Follow up with Dr. Hinojosa within 1 week of leaving the hospital. Follow up with the urologist Dr. Forman within 1 week of leaving the hospital. He will decide what to do about the trevino at your office visit. We will include the contact information in your paperwork. Please take the Finasteride and Flomax for your prostate. In terms of antibiotics, we will start you on Cephalexin 250 mg every 12 hours for 10 days duration. If there are any new or worsening symptoms, please return to the emergency room. Referrals: Milad Forman MD [Staff Provider] - Avery Hinojosa MD [Staff Provider] -
[2017-02-17 17:09] VITALS: BP 99/65; PULSE 105; TEMP 98; O2SAT 97
[2017-02-19 01:13] LABS: KAPPA/LAMBDA FREE RATIO 2.17 (0.26-1.65)
[2017-02-19 19:18] LABS: ABNORMAL PROTEIN BAND 1 0.24 g/dL (None Detected); BETA 1 GLOBULIN 0.5 g/dL (0.4-0.6); BETA 2 GLOBULIN 0.9 g/dL (0.2-0.5); GAMMA GLOBULIN 2.2 g/dL (0.8-1.7)
== END 2017-02-17 18:30 | DRG 683 ==
LOC: C.ER 13:56 → C.9E 16:22 → C.6T 19:47
PROVIDERS: ADMIT Hospitalist; ATTEND Hospitalist
DX: N17.9 Acute kidney failure, unspecified (principal); E87.2 Acidosis; E11.22 Type 2 diabetes mellitus with diabetic chronic kidney disease; D63.1 Anemia in chronic kidney disease; N13.8 Other obstructive and reflux uropathy; T83.83XA Hemorrhage due to genitourinary prosthetic devices, implants and grafts, initial encounter; N13.30 Unspecified hydronephrosis; N30.91 Cystitis, unspecified with hematuria; Y65.8 Other specified misadventures during surgical and medical care; I12.9 Hypertensive chronic kidney disease with stage 1 through stage 4 chronic kidney disease, or unspecified chronic kidney disease; N18.2 Chronic kidney disease, stage 2 (mild); N40.1 Benign prostatic hyperplasia with lower urinary tract symptoms; M06.9 Rheumatoid arthritis, unspecified; K21.9 Gastro-esophageal reflux disease without esophagitis; E78.5 Hyperlipidemia, unspecified; M19.90 Unspecified osteoarthritis, unspecified site; Z96.653 Presence of artificial knee joint, bilateral; N28.1 Cyst of kidney, acquired; Z85.028 Personal history of other malignant neoplasm of stomach; Z87.01 Personal history of pneumonia (recurrent); Z87.891 Personal history of nicotine dependence

== ENCOUNTER 2018-04-20 07:43 | Day surgery (SDC) | payer MEDICARE, OTHER ==
[2018-04-16 12:44] VITALS: BMI 25.6
[2018-04-20] MEDS ORDERED: ceFAZolin 1 gm in NS 1 GM/100 ML BAG IVPB ONE (11:43)
[2018-04-20] MEDS ORDERED: Lidocaine/Epinephrine 1% 1:100000 10 ML IJ ONE (11:43)
[2018-04-20] MEDS ORDERED: Bupivacaine 0.25% 20 ML INJ IJ ONE (11:43)
[2018-04-20] MEDS ORDERED: ceFAZolin 1 gm FROZEN Premix 1 GM/50 ML ML IVPB ONE (11:43)
[2018-04-20] MEDS ORDERED: Propofol 10 mg/ml Inj (20 ML) ONE (11:45)
[2018-04-20] MEDS ORDERED: Lidocaine Hydrochloride 10 ML INJ ONE (12:24)
--- NOTE | 2018-04-20 12:24 | PCM.SURG1 ---
Surgeon's Initial Post Op Note - Surgeon's Notes Surgeon: Dr. Blake B[employer] Process Control Technician: Dr. Gayle PGY4 Type of Anesthesia: General LMA Pre-Operative Diagnosis: Lymphadenopathy Operative Findings: same Post-Operative Diagnosis: same Operation Performed: Right Axillary Lymph node biopsy Specimen/Specimens Removed: lymph node Estimated Blood Loss: EBL {In ML}: 10 Blood Products Given: N/A Drains Used: No Drains Post-Op Condition: Good Date of Surgery/Procedure: 04/20/18 Time of Surgery/Procedure: 12:24
[2018-04-20] MEDS ORDERED: HYDROmorphone 0.5 mg/0.5 ml ISec IVP PRN (12:37)
[2018-04-20] MEDS ORDERED: Lactated Ringer's 1,000 ML IV SCH (12:45)
[2018-04-20 13:04] VITALS: PULSE 85; RESP 13; TEMP 97.5
[2018-04-20 13:29] VITALS: BP 126/79; O2SAT 98
--- NOTE | 2018-04-21 01:31 | OP ---
PROCEDURE DATE: 04/20/2018 PREOPERATIVE DIAGNOSIS: Generalized lymphadenopathy. POSTOPERATIVE DIAGNOSIS: Generalized lymphadenopathy. PROCEDURE DONE: Right axillary lymph node biopsy. SURGEON: Clinton Blake MD JEWELRY ESTIMATOR: Perla Gayle, PGY-4 resident ANESTHESIA: General anesthesia with LMA. ESTIMATED BLOOD LOSS: Around 10 mL. DRAINS: None. PATHOLOGY: The lymph node was sent fresh to the pathology department after talking to pathologist on the phone. INTRAOPERATIVE FINDINGS: The patient had right axillary lymphadenopathy as well as generalized lymphadenopathy. DESCRIPTION OF PROCEDURE: On intraoperative steps, this is an 82-year-old male who was diagnosed with generalized lymphadenopathy. The patient was consented for the right axillary lymph node biopsy. The patient was brought to the OR, placed supine on the operating table. After induction of the anesthesia, the right axilla was prepped and draped in the usual sterile fashion. A transverse incision was made in the lower axilla. After incising the skin, subcutaneous tissue and the fascia, the lymph node was identified. A large lymph node was excised, and it was sent off the table for the pathology. Proper hemostasis was achieved. wound was irrigated. The wound was closed in two layers; the subcu with a 2-0 Vicryl and the skin with a 4-0 Monocryl, and a dry sterile dressing was applied. The patient tolerated the procedure well. Count of instrument and gauze was correct. There were no apparent complications. The patient was reversed from anesthesia and sent to the postanesthesia care unit in stable condition. Clinton Blake MD
== END 2018-04-20 13:43 | disposition home or self-care (01) ==
LOC: C.SDS 07:43
PROVIDERS: ATTEND Surgery Surgical Critical Care
DX: R59.9 Enlarged lymph nodes, unspecified (principal)
CPT/HCPCS: 38525; 88307; J0690; J2704; J3010

== ENCOUNTER 2018-06-12 10:32 | Outpatient (CLI) | payer MEDICARE, OTHER | END 2018-06-12 10:33 | disposition home or self-care (01) | LOC: C.CARD 10:32 ==